=== PATIENT | male | born 1945 | race Caucasian/White ===

== ENCOUNTER 2017-06-21 09:04 | Day surgery (SDC) | payer MEDICARE, BC ==
[~2017-06-21 09:04] MED LIST: ACETAMINOPHEN 1,000 MG/100 ML BTL IV ONE; CEFAZOLIN 1 Gram 1 GM/50 ML BAG IVPB ONE
[2017-06-21] MEDS ORDERED: PROPOFOL 10 MG/ML VIAL IV ONE (14:00)
[2017-06-21] MEDS ORDERED: MIDAZOLAM HCL 2MG/2ML VIAL IV ONE (14:00)
[2017-06-21] MEDS ORDERED: FENTANYL PF 100MCG/2ML VIAL IV ONE (14:00)
[2017-06-21] MEDS ORDERED: LIDOCAINE 2% MDV (20MG/ML) 20ML VIAL IV ONE (14:00)
[2017-06-21] MEDS ORDERED: ACETAMINOPHEN 1,000 MG/100 ML BTL IV ONE (16:06)
[2017-06-21] MEDS ORDERED: CEFAZOLIN 1 Gram 1 GM/50 ML BAG IVPB ONE (16:06)
[2017-06-21] MEDS ORDERED: HYDROCODONE/APAP 5/325MG TABLET PO ONE (16:06)
[2017-06-21] MEDS ORDERED: BUPIVACAINE 0.25% W/EPI MPF 30ML VIAL IVP ONE (16:06)
--- NOTE | 2017-06-23 09:00 | Operative Note ---
DATE OF SURGERY: 06/21/2017 Surgeon: Dagoberto Rubio DO Referring physician: Hardik Issa PREOPERATIVE DIAGNOSIS: History of lymphoma. POSTOPERATIVE DIAGNOSIS: History of lymphoma. OPERATION: Left inguinal exploration with lymphadenectomy. Indication: The patient is a 71-year-old male who I saw many, many years ago and biopsy was done, with the subsequent diagnosis of lymphoma. He went through some treatment, however, recent PET scan did show some activity in the left groin. He did have some palpable adenopathy and biopsy was requested. Therefore, consent was signed, questions were answered. PROCEDURE: He was taken to the operating room and placed in the supine position. Local IV sedation was given per the Department of Anesthesia. The patient's left groin was prepped and draped in sterile fashion. The area over the mass was anesthetized with 5.0 mL of 0.25% Sensorcaine with epinephrine. A 3 cm incision was made. This was carried down through the subcutaneous tissues, appeared to be left inguinal adenopathy. This was dissected free from the surrounding tissue with cautery and then passed off the field. This was sent fresh for flow cytometry. There was really no other adenopathy that I could detect in the left groin at all. The wound was then irrigated and closed in layers with 3-0 and 4-0 Vicryl. He was taken to the recovery room in satisfactory condition. FINDINGS AT THE TIME OF SURGERY: Left inguinal adenopathy. Pathology pending. CC: Dr. Hardik NOE
== END 2017-06-21 11:05 | disposition home or self-care (01) ==
LOC: SUR 09:04
PROVIDERS: ATTEND Surgery
DX: C82.55 Diffuse follicle center lymphoma, lymph nodes of inguinal region and lower limb (principal); I10 Essential (primary) hypertension
CPT/HCPCS: 38500; 00400; 88305; 88342; 88341; J3010; J0690

== ENCOUNTER 2017-11-17 16:22 | Observation (INO) | payer MEDICARE, BC ==
[2017-11-17] MEDS ORDERED: 0.9 % SODIUM CHLORIDE 1,000 ML BAG IV ONE (16:59)
--- NOTE | 2017-11-17 16:59 | Emergency Department Record ---
History of Present Illness - General Chief Complaint: Dizziness Stated Complaint: DIZZINESS,WEAKNESS, NO APPETITE Time Seen by Provider: 11/17/17 16:53 Source: Patient, RN notes reviewed Mode of Arrival: Ambulatory - History of Present Illness Initial Comments: dizziness and weak and last chem on oct 18 2017 for non hodgkins lymphoma.(2014) . No pain and very tired on 10/18/2017 hg 8.0, Decreased appetite and one loose stool today. oncologist Dr. Mccallum [facility]. No cough, No chest pain, no abd pain, no dysuria Complaint: Dizziness Onset/Timin -: Month(s) Timing: Constant Description: Lightheadedness, Other History of Same: No History of Trauma: No Severity: Moderate Improves With: Nothing Worsens With: Nothing Associated Symptoms: Loss of appetite, Weakness - Marked Tree Coma Scale Eye Response: (4) Open spontaneously Motor Response: (6) Obeys commands Verbal Response: (5) Oriented Gloria Total: 15 - Related Data Home Medications Medication Instructions Recorded Confirmed Last Taken Metoprolol Succinate 50 mg PO DAILY 11/17/17 11/17/17 Unknown Ondansetron [Zofran Odt] 4 mg PO Q8H 11/17/17 11/17/17 Unknown Tamsulosin HCl [Flomax] 0.4 mg PO DAILY 11/17/17 11/17/17 Unknown Allergies Allergy/AdvReac Type Severity Reaction Status Date / Time No Known Drug Allergies Allergy Verified 04/08/14 10:18 Travel Screening - Travel/Exposure Within Last 30 Days Have you traveled within the last 30 days?: No Review of Systems Reviewed: No additional complaints except as noted below Constitutional: Reports: As per HPI, Chills. Denies: Fever, Malaise, Night sweats, Weakness, Weight change Eyes: Reports: As per HPI. Denies: Eye discharge, Eye pain, Photophobia, Vision change ENT: Reports: As per HPI. Denies: Congestion, Dental pain, Ear pain, Epistaxis , Hearing loss, Throat pain Respiratory: Reports: As per HPI. Denies: Cough, Dyspnea, Hemoptysis, Stridor, Wheezes Cardiovascular: Reports: As per HPI. Denies: Arrhythmia, Chest pain, Dyspnea on exertion, Edema, Murmurs, Orthopnea, Palpitations, Paroxysmal nocturnal dyspnea, Rheumatic Fever, Syncope Endocrine: Reports: As per HPI. Denies: Fatigue, Heat or cold intolerance, Polydipsia, Polyuria Gastrointestinal: Reports: As per HPI. Denies: Abdominal pain, Constipation, Diarrhea, Hematemesis, Hematochezia, Melena, Nausea, Vomiting Genitourinary: Reports: As per HPI. Denies: Dysuria, Frequency, Hematuria, Incontinence, Retention, Testicular pain, Testicular mass, Urgency Musculoskeletal: Reports: As per HPI. Denies: Arthralgia, Back pain, Gout, Joint swelling, Myalgia, Neck pain Skin: Reports: As per HPI. Denies: Bruising, Change in color, Change in hair/ nails, Lesions, Pruritus, Rash Neurological: Reports: As per HPI. Denies: Abnormal gait, Confusion, Headache, Numbness, Paresthesias, Seizure, Tingling, Tremors, Vertigo, Weakness Psychiatric: Reports: As per HPI. Denies: Anxiety, Auditory hallucinations, Depression, Homicidal thoughts, Suicidal thoughts, Visual hallucinations Hematological/Lymphatic: Reports: As per HPI. Denies: Anemia, Blood Clots, Easy bleeding, Easy bruising, Swollen glands Past Medical History - SOCIAL HISTORY Smoking Status: Current every day smoker Alcohol Use: None Drug Use: None - RESPIRATORY Hx Respiratory Disorders: No - CARDIOVASCULAR Hx Cardio Disorders: Yes Hx Hypertension: Yes (meds good control) Comment:: tires easily - NEURO Hx Neuro Disorders: Yes Comment:: occass. lightheadedness - GI Hx GI Disorders: Yes Hx Ulcer: Yes (20 yrs ago) Hx Wt Loss/Wt Gain: Yes (recent wt loss 30 lbs) Hx of Polyps: Yes (last c-scope) - Hx Genitourinary Disorders: Yes Hx Prostate Problems: Yes (flomax) - ENDOCRINE Hx Endocrine Disorders: No - MUSCULOSKELETAL Hx Musculoskeletal Disorders: Yes - PSYCH Hx Psych Problems: Yes Hx Anxiety: Yes (related to illness) Hx Depression: Yes (same) - HEMATOLOGY/ONCOLOGY Hx Hematology/Oncology Disorders: Yes Hx Cancer: Yes (non hodgekins lymphoma) Hx Chemotherapy: Yes (on hold. last one 6--17) Hx Radiation Therapy: No Family Medical History Any Significant Family History?: Yes Hx Cancer: Mother *Cancer Comment: leukemia Hx Diabetes: Brother/Sister Hx HTN: Father, Mother, Brother/Sister Hx Kidney Disease: Father *Seizure Comment: grandson has epilepsy Hx Stroke: Mother Physical Exam - General General Appearance: Alert, Oriented x3, Cooperative, Mild distress - Head Head exam: Normal inspection - Eye Eye exam: Normal appearance, PERRL Pupils: Normal accommodation - ENT ENT exam: Normal exam, Mucous membranes moist, Normal external ear exam, Normal orophraynx, TM's normal bilaterally Ear exam: Normal external inspection. negative: External canal tenderness Nasal Exam: Normal inspection. negative: Discharge, Sinus tenderness Mouth exam: Normal external inspection, Tongue normal Teeth exam: Normal inspection. negative: Dental caries Throat exam: Normal inspection. negative: Tonsillar erythema, Tonsillar exudate - Neck Neck exam: Normal inspection, Full ROM. negative: Tenderness - Respiratory Respiratory exam: Normal lung sounds bilaterally. negative: Respiratory distress - Cardiovascular Cardiovascular Exam: Regular rate, Normal rhythm, Normal heart sounds - GI/Abdominal GI/Abdominal exam: Soft, Normal bowel sounds. negative: Tenderness - Rectal Rectal exam: Deferred - exam: Deferred - Extremities Extremities exam: Normal inspection, Full ROM, Normal capillary refill. negative: Tenderness - Back Back exam: Reports: Normal inspection, Full ROM. Denies: Muscle spasm, Rash noted, Tenderness - Neurological Neurological exam: Alert, Normal gait, Oriented X3, Reflexes normal - Psychiatric Psychiatric exam: Normal affect, Normal mood - Skin Skin exam: Dry, Intact, Normal color, Warm Course Vital Signs 11/17/17 16:32 Temperature 98.4 F Pulse Rate 88 Respiratory 12 Rate Blood Pressure 125/65 Pulse Ox 99 - Reevaluation(s) Reevaluation #1: discussed case with Elisabeth and with admit to Dr. Benoit and Elisabeth. observation for one unit of blood 11/17/17 18:13 Medical Decision Making - Data Complexity MDM Data: Labs Ordered and/or Reviewed (hg 6.8), EKG Ordered and/or Reviewed ( No acute changes with a PVC) - Lab Data Result diagrams: 11/17/17 16:45 11/17/17 16:45 Disposition Clinical Impression: Weakness Anemia Qualifiers: Anemia type: unspecified type Qualified Code(s): D64.9 - Anemia, unspecified Non-Hodgkin lymphoma Qualifiers: Non-Hodgkin lymphoma type: unspecified type Lymphoma site: unspecified region Qualified Code(s): C85.90 - Non-Hodgkin lymphoma, unspecified, unspecified site Decision to Admit: Admit from ER Forms: Patient Portal Access Time of Disposition: 18:14 Quality - Quality Measures Quality Measures: N/A - Blood Pressure Screening Does Patient Have Any of the Following: No Blood Pressure Classification: Pre-Hypertensive BP Reading Systolic Measurement: 125 Diastolic Measurement: 65 Screening for High Blood Pressure: < Pre-Hypertensive BP, F/U Documented > [ [id number]] Pre-Hypertensive Follow-up Interventions: Referral to alternative/primary care provider.
[2017-11-17 17:09] LABS: HEMATOCRIT 21.3 % (42.0-52.0); MEAN CORPUSCULAR HGB CONC 31.9 g/dl (32-36); MEAN PLATELET VOLUME 11.2 fl (7.4-10.4); PLATELET COUNT 157 K/uL (130-400); RED BLOOD COUNT 1.99 M/uL (4.40-5.70); RED CELL DISTRIBUTION WIDTH 17.4 % (11.5-14.5)
[2017-11-17 17:15] LABS: MEAN CORPUSCULAR HEMOGLOBIN 34.1 pg (27-33)
[2017-11-17] MEDS ORDERED: 0.9 % SODIUM CHLORIDE 1000ML 1,000 ML IV SCH (17:15)
[2017-11-17 17:22] LABS: ANISOCYTOSIS 2+; HYPOCHROMIA 2+; PLATELET ESTIMATE NORMAL (NORMAL)
[2017-11-17 17:28] LABS: BLOOD UREA NITROGEN 15 mg/dL (8-23); CREATININE 0.6 mg/dL (0.7-1.2); EST GLOMERULAR FILTRATION RATE > 60 mL/min
[2017-11-17 17:29] LABS: TOTAL PROTEIN 6.2 g/dL (6.6-8.7)
[2017-11-17 17:31] LABS: GLUCOSE,RANDOM 108 mg/dL (74-109)
[2017-11-17 17:33] LABS: ALT/SGPT 28 U/L (<41)
[2017-11-17 17:34] LABS: ALBUMIN 3.4 g/dL (4.0-5.0); ALKALINE PHOSPHATASE 81 U/L (40-129); AST/SGOT 36 U/L (10.0-50.0)
[2017-11-17 17:44] LABS: BILIRUBIN,DIRECT < 0.2 mg/dL (0-0.3)
[2017-11-17 18:52] LABS: ABO GROUP O; ANTIBODY SCREEN NEGATIVE (NEGATIVE); RH TYPE POSITIVE
[2017-11-17 18:53] LABS: IMMED. SPIN CROSSMATCH COMPATIBLE
[2017-11-17] MEDS ORDERED: 0.9 % SODIUM CHLORIDE 1000ML 1,000 ML IV PRN (20:19)
[2017-11-17] MEDS ORDERED: ONDANSETRON 4 MG ODT TABLET PO SCH (20:19)
[2017-11-17] MEDS ORDERED: ONDANSETRON 4 MG ODT TABLET PO PRN (21:50)
[2017-11-17 22:30] LABS: URINE APPEARANCE CLEAR; URINE BILIRUBIN NEGATIVE (NEGATIVE); URINE BLOOD NEGATIVE (NEGATIVE); URINE COLOR YELLOW; URINE GLUCOSE (UA) NEGATIVE (NEGATIVE); URINE KETONE NEGATIVE (NEGATIVE); URINE LEUKOCYTE ESTERASE NEGATIVE (NEGATIVE); URINE NITRITE NEGATIVE (NEGATIVE); URINE PROTEIN NEGATIVE (NEGATIVE); URINE UROBILINOGEN 0.2 E.U./dL (0.20 - 1.00)
[2017-11-18 00:34] LABS: HEMATOCRIT 19.6 % (42.0-52.0)
[2017-11-18 00:37] LABS: HEMOGLOBIN 6.3 gm/dl (14.0-18.0)
[2017-11-18 01:20] LABS: IMMED. SPIN CROSSMATCH COMPATIBLE
[2017-11-18 04:54] LABS: HEMATOCRIT 21.6 % (42.0-52.0); MEAN CELL VOLUME 100.5 fl (81-97); MEAN CORPUSCULAR HGB CONC 32.4 g/dl (32-36); MEAN PLATELET VOLUME 11.3 fl (7.4-10.4); PLATELET COUNT 122 K/uL (130-400); RED BLOOD COUNT 2.15 M/uL (4.40-5.70); RED CELL DISTRIBUTION WIDTH 18.2 % (11.5-14.5); WHITE BLOOD COUNT W/O DIFF 6.2 K/uL (4.2-12.2)
[2017-11-18 04:55] LABS: MEAN CORPUSCULAR HEMOGLOBIN 32.5 pg (27-33)
[2017-11-18] MEDS ORDERED: METOPROLOL SUCC 50 MG TABLET PO SCH (10:00)
[2017-11-18] MEDS ORDERED: ENOXAPARIN 40 MG/0.4 ML SYR SC SCH (10:00)
[2017-11-18] MEDS ORDERED: TAMSULOSIN HCL 0.4 MG CAP.ER.24H PO SCH (10:00)
--- NOTE | 2017-11-18 10:15 | History & Physical ---
History of Present Illness - Date of Service Date of Service for History & Physical: 11/18/17 - History of Present Illness Admitting Diagnosis: anemia. non hodgkins lymphoma. post chemotherapy 2016 History of Present Illness: Deni is a 71 year-old male who was admitted on 11/17/17 for observation for anemia. His history includes Non-Hodgekins lymphoma (diagnosed in 2013), hypertension, and anxiety. His last chemotherapy administration was 10/18/17 and his Hgb was 8.0 at that time. He presented to the ED on 11/17/17 because he had been experiencing weakness, fatigue, and dizziness since his last chemo administration. He denies recent illness, fever, change in appetite or change in bowel characteristics/patterns. In the ED, his vital signs were stable and his EKG showed normal sinus rhythm with no changes. A u/a was completed and negative, CBC and CMP were completed. His Hgb was low at 6.8. A rectal exam was preformed and did not show signs of any acute bleeding. He was admitted for observation status for anemia and management with blood transfusion. 11/18/17: Deni is resting in bed. He is alert and oriented x3. He denies pain. He states that he feels much better than he did yesterday. His hgb has increased to 7.0 after 2 units PRBCs. He states that he has been using the urinal with no problems. He states that he has not had a bowel movement since yesterday morning when he one large loose stool. He denies black or bloody stools, vomiting, and heart burn. PCP: Dr. Lara Oncologist: Dr. Kumar Travel Screening - Travel/Exposure Within Last 30 Days Have you traveled within the last 30 days?: No - Travel/Exposure Within Last Year Have you traveled outside the [place] in the last year?: No - Additonal Travel Details Have you been exposed to anyone with a communicable illness?: No Review of Systems Constitutional: Reports: As per HPI, Chills, Weakness. Denies: Fever, Malaise, Night sweats, Weight change Eyes: Reports: As per HPI. Denies: Eye discharge, Eye pain, Photophobia, Vision change ENT: Reports: As per HPI. Denies: Congestion, Dental pain, Ear pain, Epistaxis , Hearing loss, Throat pain Respiratory: Reports: As per HPI. Denies: Cough, Dyspnea, Hemoptysis, Stridor, Wheezes Cardiovascular: Reports: As per HPI. Denies: Arrhythmia, Chest pain, Dyspnea on exertion, Edema, Murmurs, Orthopnea, Palpitations, Paroxysmal nocturnal dyspnea, Rheumatic Fever, Syncope Endocrine: Reports: Fatigue, Heat or cold intolerance. Denies: Polydipsia, Polyuria Gastrointestinal: Reports: As per HPI. Denies: Abdominal pain, Constipation, Diarrhea, Hematemesis, Hematochezia, Melena, Nausea, Vomiting Genitourinary: Reports: As per HPI. Denies: Dysuria, Frequency, Hematuria, Incontinence, Retention, Testicular pain, Testicular mass, Urgency Musculoskeletal: Reports: As per HPI. Denies: Arthralgia, Back pain, Gout, Joint swelling, Myalgia, Neck pain Skin: Reports: As per HPI. Denies: Bruising, Change in color, Change in hair/ nails, Lesions, Pruritus, Rash Neurological: Reports: As per HPI, Weakness, Other (Dizziness). Denies: Abnormal gait, Confusion, Headache, Numbness, Paresthesias, Seizure, Tingling, Tremors, Vertigo Psychiatric: Reports: As per HPI. Denies: Anxiety, Auditory hallucinations, Depression, Homicidal thoughts, Suicidal thoughts, Visual hallucinations Hematological/Lymphatic: Reports: As per HPI. Denies: Anemia, Blood Clots, Easy bleeding, Easy bruising, Swollen glands Past Medical History - SOCIAL HISTORY Smoking Status: Current every day smoker - RESPIRATORY Hx Respiratory Disorders: No - CARDIOVASCULAR Hx Cardio Disorders: Yes Hx Hypertension: Yes (meds good control) Comment:: tires easily - NEURO Hx Neuro Disorders: Yes Comment:: occass. lightheadedness - GI Hx GI Disorders: Yes Hx Ulcer: Yes (20 yrs ago) Hx Wt Loss/Wt Gain: Yes (wt loss 30 lbs) - Hx Genitourinary Disorders: Yes Hx Prostate Problems: Yes (flomax) - ENDOCRINE Hx Endocrine Disorders: No - MUSCULOSKELETAL Hx Musculoskeletal Disorders: Yes - PSYCH Hx Psych Problems: No Hx Anxiety: No Hx Depression: No - HEMATOLOGY/ONCOLOGY Hx Hematology/Oncology Disorders: Yes Hx Cancer: Yes (non hodgekins lymphoma) Hx Chemotherapy: Yes (on hold. last one 10-18-17) Hx Radiation Therapy: No Family Medical History Any Significant Family History?: Yes Hx Cancer: Mother *Cancer Comment: leukemia Hx Diabetes: Brother/Sister Hx HTN: Father, Mother, Brother/Sister Hx Kidney Disease: Father *Seizure Comment: grandson has epilepsy Hx Stroke: Mother H&P Meds/Allergies - Allergies Allergies: Allergies Allergy/AdvReac Type Severity Reaction Status Date / Time No Known Drug Allergies Allergy Verified 04/08/14 10:18 - Home Medications Home Medications Medication Instructions Recorded Confirmed Last Taken Metoprolol Succinate 50 mg PO DAILY 11/17/17 11/17/17 Unknown Ondansetron [Zofran Odt] 4 mg PO Q8H 11/17/17 11/17/17 Unknown Tamsulosin HCl [Flomax] 0.4 mg PO DAILY 11/17/17 11/17/17 Unknown - Active Medications Active Medications: Current Medications Enoxaparin Sodium (Lovenox) 40 mg SC DAILY [facility] Last Admin: 11/18/17 09:10 Dose: Not Given Sodium Chloride () 1,000 mls @ 15 mls/hr IV .Q24H PRN PRN Reason: LARGE VOLUME IV Metoprolol Succinate (Toprol Xl) 50 mg PO DAILY [facility] Last Admin: 11/18/17 09:10 Dose: Not Given Ondansetron HCl (Zofran Odt) 4 mg PO Q8H PRN PRN Reason: NAUSEA/VOMITING Tamsulosin HCl (Flomax) 0.4 mg PO DAILY [facility] Last Admin: 11/18/17 09:09 Dose: Not Given Physical Exam - Vital Signs Vital Signs: Vital Signs - Last 24 Hrs Temp Pulse Resp BP BP BP Pulse Ox 11/18/17 09:27 99.6 F 124/76 11/18/17 07:53 84 20 11/18/17 06:00 99.6 F 76 18 124/76 94 L 11/18/17 02:00 100.3 F H 79 18 127/60 97 11/17/17 22:00 100.9 F H 86 18 143/74 97 11/17/17 21:00 18 11/17/17 20:20 99.2 F 97 H 18 129/82 100 - General General Appearance: Alert, Oriented x3, Cooperative, No acute distress - Head Head exam: Normal inspection - Eye Eye exam: Normal appearance, PERRL Pupils: Normal accommodation - ENT ENT exam: Normal exam, Mucous membranes moist, Normal external ear exam, Normal orophraynx Ear exam: Normal external inspection. negative: External canal tenderness Nasal Exam: Normal inspection. negative: Discharge, Sinus tenderness Mouth exam: Normal external inspection, Tongue normal Teeth exam: Normal inspection. negative: Dental caries Throat exam: Normal inspection. negative: Tonsillar erythema, Tonsillar exudate - Neck Neck exam: Normal inspection, Full ROM. negative: Tenderness - Respiratory Respiratory exam: Normal lung sounds bilaterally. negative: Respiratory distress - Cardiovascular Cardiovascular Exam: Regular rate, Normal rhythm, Normal heart sounds Peripheral Pulses: 2+: Radial (R), Radial (L), Dorsalis Pedis (R), Dorsalis Pedis (L) - GI/Abdominal GI/Abdominal exam: Soft, Normal bowel sounds. negative: Tenderness - Rectal Rectal exam: Deferred - exam: Deferred - Extremities Extremities exam: Normal inspection, Full ROM, Normal capillary refill. negative: Tenderness - Back Back exam: Reports: Normal inspection, Full ROM. Denies: Muscle spasm, Rash noted, Tenderness - Neurological Neurological exam: Alert, Normal gait, Oriented X3 - Psychiatric Psychiatric exam: Normal affect, Normal mood - Skin Skin exam: Dry, Intact, Normal color, Warm Results - Labs Result Diagrams: 11/18/17 04:50 11/17/17 16:45 Labs Last 24 Hours: Laboratory Results - last 24 hr 11/17/17 11/18/17 11/18/17 22:30 00:30 04:50 WBC 6.2 RBC 2.15 L Hgb 6.3 L* 7.0 L Hct 19.6 L 21.6 L MCV 100.5 H MCH 32.5 MCHC 32.4 RDW 18.2 H Plt Count 122 L MPV 11.3 H Neutrophils % 70.0 Band Neutrophils % 0.0 Eosinophils % Not Reportable Basophils % Not Reportable Lymphocytes 10.0 L Monocytes 16.0 H Basophils 0.0 Eosinophil Count 4.0 Urine Color Yellow Urine Appearance Clear Urine pH 6.0 Ur Specific [place] 1.010 Urine Protein Negative Urine Glucose (UA) Negative Urine Ketones Negative Urine Blood Negative Urine Nitrite Negative Urine Bilirubin Negative Urine Urobilinogen 0.2 Ur Leukocyte Esterase Negative VTE H&P Assessment - Risk for VTE Risk for VTE: Yes Risk Level: Low Risk Assessment Date: 11/18/17 Risk Assessment Time: 10:18 VTE Orders Placed or Will Be Placed: No VTE Reason for No Prophylaxis: Contraindicated (have not ruled out acute bleed) Plan - Inpatient Certification Inpatient Certification: Admit to inpatient care: Based on my medical assessment, after consideration of patient's risk factors (age, co-morbidities and patient presenting symptoms and acuity), I expect that this patient will remain in the hospital greater than or equal to two midnights and that the services needed warrant inpatient care because: Patient Risk Factors: [] Estimated length of stay: [] The patient may reasonably be expected to be discharged or transferred to a hospital within 96 hours after admission to [facility]. Services needed: [] Post hospital care (if known): [] I certify that my determination is in accordance with my understanding of Medicare requirements for reasonable and necessary inpatient services. - Detailed Diagnosis and Plan (1) Anemia Current Visit: Yes Status: Acute Qualifiers: Anemia type: unspecified type Qualified Code(s): D64.9 - Anemia, unspecified Base Code: D64.9 - ANEMIA, UNSPECIFIED Comment: 11/18/17- Pt. presented to ED on 11/17/17 because he had been feeling tired, weak, and dizzy since his last chemotherapy administration on 10/18/17. Anemia appears macrocytic in nature. Hgb increased to 7.0 this morning after 2 units PRBCs transfused. No evidence of GI blood loss. Ordered labs to further evaluate cause of macrocytic anemia, including B12, LDH, haptoglobin, ferritin, retic count. Suscpect anemia may be secondary to chemotherapy agent. PT eval completed and no concerns regarding weakness, safe to ambulate. Spoke with Dr. Kumar, he does not recommend any further intervention from an oncological standpoint. Labs completed and faxed to pt's oncologist (Dr. Kumar). Pt. will f/u with Dr. Kumar early next week, his office will call to schedule tomorrow. (2) Non-Hodgkin lymphoma Current Visit: Yes Status: Acute Qualifiers: Non-Hodgkin lymphoma type: unspecified type Lymphoma site: unspecified region Qualified Code(s): C85.90 - Non-Hodgkin lymphoma, unspecified, unspecified site Base Code: C85.90 - NON-HODGKIN LYMPHOMA, UNSPECIFIED, UNSPECIFIED SITE Comment: 11/18/17- Pt. diagnosed with non-hodgkins lymphoma in 2013, last chemo round was 10/18/17. Pt. has been experiencing weakness, fatigue, and dizziness since. EKG in ED showed NSR. CBC demonstrated anemia- treated with 2 units PRBCs, hgb increased to 7.0. VS remain stable. Labs requested by pt's oncologist (Dr. Kumar) have been completed and faxed to his office. Pt. will f/u with Dr. Kumar early next week. Plan to d/c home this afternoon. (3) Full code status Current Visit: Yes Status: Acute Base Code: Z78.9 - OTHER SPECIFIED HEALTH STATUS Comment: 11/18/17- Pt. is full code status (4) DVT prophylaxis Current Visit: Yes Status: Acute Base Code: [id number] - Comment: 11/18/17- contraindicated with possible acute bleed
--- NOTE | 2017-11-18 13:59 | Discharge Summary ---
Providers Discharge Summary Date: 11/18/17 Date of admission: 11/17/17 20:14 Expected Date of Discharge: 11/18/17 Attending physician: Wong Saldana Primary care physician: GEORGINA LARA M.D. Physical Exam - Vital Signs Vital Signs: Vital Signs - Last 24 Hrs Temp Pulse Pulse Resp BP BP BP 11/18/17 10:00 99.1 F 80 18 113/68 11/18/17 09:27 99.6 F 124/76 11/18/17 07:53 84 20 11/18/17 06:00 99.6 F 76 18 124/76 11/18/17 02:00 100.3 F H 79 18 127/60 11/17/17 22:00 100.9 F H 86 18 143/74 11/17/17 21:00 18 11/17/17 20:20 99.2 F 97 H 18 129/82 Pulse Ox 11/18/17 10:00 96 11/18/17 09:27 11/18/17 07:53 11/18/17 06:00 94 L 11/18/17 02:00 97 11/17/17 22:00 97 11/17/17 21:00 11/17/17 20:20 100 - General General Appearance: Alert, Oriented x3, Cooperative, No acute distress - Head Head exam: Normal inspection - Eye Eye exam: Normal appearance, PERRL Pupils: Normal accommodation - ENT ENT exam: Normal exam, Mucous membranes moist, Normal external ear exam, Normal orophraynx Ear exam: Normal external inspection. negative: External canal tenderness Nasal Exam: Normal inspection. negative: Discharge, Sinus tenderness Mouth exam: Normal external inspection, Tongue normal Teeth exam: Normal inspection. negative: Dental caries Throat exam: Normal inspection. negative: Tonsillar erythema, Tonsillar exudate - Neck Neck exam: Normal inspection, Full ROM. negative: Tenderness - Respiratory Respiratory exam: Normal lung sounds bilaterally. negative: Respiratory distress - Cardiovascular Cardiovascular Exam: Regular rate, Normal rhythm, Normal heart sounds Peripheral Pulses: 2+: Radial (R), Radial (L), Dorsalis Pedis (R), Dorsalis Pedis (L) - GI/Abdominal GI/Abdominal exam: Soft, Normal bowel sounds. negative: Tenderness - Rectal Rectal exam: Deferred - exam: Deferred - Extremities Extremities exam: Normal inspection, Full ROM, Normal capillary refill. negative: Tenderness - Back Back exam: Reports: Normal inspection, Full ROM. Denies: Muscle spasm, Rash noted, Tenderness - Neurological Neurological exam: Alert, Normal gait, Oriented X3 - Psychiatric Psychiatric exam: Normal affect, Normal mood - Skin Skin exam: Dry, Intact, Normal color, Warm Hospitalization - Hospitalization Admission Diagnosis: anemia. non hodgkins lymphoma. post chemotherapy 2016 - Problem List/Discharge Diagnosis (1) Anemia Current Visit: Yes Status: Acute Discharge Diagnosis: Anemia type: unspecified type Qualified Code(s): D64.9 - Anemia, unspecified Base Code: D64.9 - ANEMIA, UNSPECIFIED Comment: 11/18/17- Pt. presented to ED on 11/17/17 because he had been feeling tired, weak, and dizzy since his last chemotherapy administration on 10/18/17. Anemia appears macrocytic in nature. Hgb increased to 7.0 this morning after 2 units PRBCs transfused. No evidence of GI blood loss and patient states symptoms have resolved. Ordered labs to further evaluate cause of macrocytic anemia, including B12, LDH, haptoglobin, ferritin, retic count. Suscpect anemia may be secondary to chemotherapy agent. PT eval completed and no concerns regarding weakness, safe to ambulate. Spoke with Dr. Kumar, he does not recommend any further intervention from an oncological standpoint. Labs completed and faxed to pt's oncologist (Dr. Deep Noel). Pt. will f/u with Dr. Kumar early next week, his office will call to schedule tomorrow. (2) Non-Hodgkin lymphoma Current Visit: Yes Status: Acute Discharge Diagnosis: Non-Hodgkin lymphoma type: unspecified type Lymphoma site: unspecified region Qualified Code(s): C85.90 - Non-Hodgkin lymphoma, unspecified, unspecified site Base Code: C85.90 - NON-HODGKIN LYMPHOMA, UNSPECIFIED, UNSPECIFIED SITE Comment: 11/18/17- Pt. diagnosed with non-hodgkins lymphoma in 2013, last chemo round was 10/18/17. Pt. has been experiencing weakness, fatigue, and dizziness since. EKG in ED showed NSR. CBC demonstrated anemia- treated with 2 units PRBCs, hgb increased to 7.0. VS remain stable. Labs requested by pt's oncologist (Dr. Kumar) have been completed and faxed to his office. Pt. will f/u with Dr. Kumar early next week. Plan to d/c home this afternoon. (3) Full code status Current Visit: Yes Status: Acute Base Code: Z78.9 - OTHER SPECIFIED HEALTH STATUS Comment: 11/18/17- Pt. is full code status - Hospitalization Course Disposition: Home, Self-Care Hospital Course: Deni is a 71 year-old male who was admitted on 11/17/17 for observation for anemia. His history includes Non-Hodgekins lymphoma (diagnosed in 2013), hypertension, and anxiety. His last chemotherapy administration was 10/18/17 and his Hgb was 8.0 at that time. He presented to the ED on 11/17/17 because he had been experiencing weakness, fatigue, and dizziness since his last chemo administration. He denies recent illness, fever, change in appetite or change in bowel characteristics/patterns. In the ED, his vital signs were stable and his EKG showed normal sinus rhythm with no changes. A u/a was completed and negative, CBC and CMP were completed. His Hgb was low at 6.8. A rectal exam was preformed and did not show signs of any acute bleeding. He was admitted for observation status for anemia and management with blood transfusion. 11/18/17: Deni is resting in bed. He is alert and oriented x3. He denies pain. He states that he feels much better than he did yesterday. His hgb has increased to 7.0 after 2 units PRBCs. He states that he has been using the urinal with no problems. He states that he has not had a bowel movement since yesterday morning when he one large loose stool. Spoke to Dr. Kumar regarding pt.'s status- he requests a reticulocyte count, ferritin, and B12 level to be drawn and faxed to his office. Dr. Kumar also stated that if pt. is feeling better, he can go home and his office will call for pt. to f/u early next week. Labs ordered to be drawn off of morning samples, will fax results to Dr. Kumar. PT consult ordered to assess safe ambulation. Will plan to d/c home this afternoon. 11/18/17, 1400: Deni is doing well, he states he feels much better. Labs requested by Dr. Kumar have been completed and faxed to his office. PT eval completed and no concerns regarding ambulation. Plan to discharge home this afternoon. Dr. Kumar's office will call pt. tomorrow to schedule f/u early next week. PCP: Dr. Lara Oncologist: Dr. Kumar Abnormal Labs: Abnormal Lab Results 11/18/17 11/18/17 11/18/17 Range/Units 00:30 04:50 10:28 RBC 2.15 L (4.40-5.70) M/uL Hgb 6.3 L* 7.0 L (14.0-18.0) gm/dl Hct 19.6 L 21.6 L (42.0-52.0) % MCV 100.5 H (81-97) fl RDW 18.2 H (11.5-14.5) % Plt Count 122 L (130-400) K/uL MPV 11.3 H (7.4-10.4) fl Lymphocytes 10.0 L (16-45) % Monocytes 16.0 H (0-9) % Ferritin 1636 H (30-400) ng/mL Direct Bilirubin (0-0.3) mg/dL 11/18/17 Range/Units 10:31 RBC (4.40-5.70) M/uL Hgb (14.0-18.0) gm/dl Hct (42.0-52.0) % MCV (81-97) fl RDW (11.5-14.5) % Plt Count (130-400) K/uL MPV (7.4-10.4) fl Lymphocytes (16-45) % Monocytes (0-9) % Ferritin (30-400) ng/mL Direct Bilirubin 0.4 H (0-0.3) mg/dL Condition at Discharge: (2) Stable Discharge Medications - Discharge Medications Home Medications: Ambulatory Orders Metoprolol Succinate 50 mg PO DAILY 11/17/17 [Last Taken Unknown] Ondansetron [Zofran Odt] 4 mg PO Q8H 11/17/17 [Last Taken Unknown] Tamsulosin HCl [Flomax] 0.4 mg PO DAILY 11/17/17 [Last Taken Unknown] Discharge Plan - Discharge Instructions Activity at Discharge: Increase Activity as Tolerated Diet at Discharge: Regular Diet Instructions: Anemia (DC) Additional Instructions: Resume home meds upon discharge Dr. Kumar's office will call you to schedule a follow-up appointment. If you do not hear from them, their phone number is Labs will be faxed to Dr. Kumar's office today Please call if any questions/concerns. If symptoms persist or worsen, go to ED for evaluation. Quality Measures - Quality Measures Quality Measures: Advance Directives, Documentation of Current Medications in Medical Record, Elder Maltreatment Screen and Follow-Up Plan, Screening for High Blood Pressure and F/U Documented - Current Medications Quality Measure: Measure #130: Documentation of Current Medications Documentation of Current Medications: <Current Medications Documented/Reviewed> [G8427] - Blood Pressure Screening Quality Measure: Screening for High Blood Pressure and Follow-Up Documented Does Patient Have Any of the Following: Active Dx of HTN Blood Pressure Classification: Pre-Hypertensive BP Reading Systolic Measurement: 124 Diastolic Measurement: 76 Screening for High Blood Pressure: Patient Exclusion, Hx of HTN [G9744] - Advance Directives Quality Measure: Measure #47: Care Plan Advance Directives Established: No Advance Directives Information Provided To Patient: Declined Advance Directives on File: No Living Will: No Power of Licsw: No Advance Care Planning: <Care Plan/Decision Maker Not Decided; Discussed & Documented> [1124F] - Elder Abuse Suspicion Index Screening: Elder Abuse Suspicion Index Screening Rely on people for bathing, dressing, shopping, banking, etc: Yes Prevented from getting food, clothes, medication, etc: No Made to feel shamed or threatened by someone: No Forced to sign papers or use money against will: No Feel afraid, touched in ways not wanted or hurt physically: No Poor eye contact, withdrawn, malnourished, cuts or bruises: No Screening Result: Negative result EASI Reference Information: Yasmany SHIPLEY, Pretty C, Richelle D, Diego Villasenor.Development and validation of a tool to assist physicians identification of elder abuse: The Elder Abuse Suspicion Index (EASI ). Journal of Elder Abuse and Neglect, 2008; 20 (3): 276-300. - Elder Maltreatment Screen Quality Measures: Elder Maltreatment Screen and Follow-Up Plan Elder Maltreatment Screen: <Negative, No Follow-Up Plan Required> [P7622]
--- NOTE | 2017-11-18 14:40 | Rehab Evaluation ---
Patient Information - Patient Information Diagnosis: anemia, non-hodgkins lymphoma, post chemotherapy Ordered Treatment: PT Evaluate and Treat Status: Initial Evaluation Surgery: No History: Detail (Pt. reports history of chemotherapy for non-hodgkins lymphoma. Pt. was admitted to ER yesterday with c/o dizziness, however, at time of physical therapy initial evaluation he did not have SOB, dizziness, or reports of fatigue.) Past Med/[place] Hx Detail: Detail (See additional medical intake forms.) Past Medical/Surgical Hx: PAST MEDICAL/SURGICAL HISTORY Past Surgical History right and left inguinal lymph node bx; rt cataract removal w lens implant 10-03-2015; left cataract removal ; colonoscopy; PMH - Respiratory Hx Respiratory Disorders No PMH - Cardiovascular Hx Cardiovascular Disorders Yes Hx Hypertension Yes: meds good control Comment: tires easily PMH - Neuro Hx Neurological Disorders Yes Comment: occass. lightheadedness PMH - GI Hx Gastrointestinal Disorders Yes Hx Ulcer Yes: 20 yrs ago Hx Weight Loss/Weight Gain Yes: wt loss 30 lbs PMH - Hx Genitourinary Disorders Yes Hx Prostate Problems Yes: flomax PMH - Endocrine Hx Endocrine Disorders No PMH - Musculoskeletal Hx Musculoskeletal Disorders Yes PMH - Psych Hx Psychiatric Problems No Hx Anxiety No Hx Depression No PMH - Hematology/Oncology Hx Hematology/Oncology Yes Disorders Hx Cancer Yes: non hodgekins lymphoma Hx Chemotherapy Yes: on hold. last one 10-18-17 Hx Radiation Therapy No Premorbid Status: Detail (Pt. has had five chemo treatments, but felt increased sx regarding dizziness after last tx.) Social History: Detail (Pt. lives in a ranch style home with a who can provide support. Pt. has a front wheeled walker at home, but had not been ambulating with his AD. Pt. did not report difficulty I ascending his two steps leading into the home prior to being admitted. Pt. does not have modifications to the bathroom. Pt. had 12 steps leading to the basement, but he infrequently uses the steps leading to the basement. Pt. is retired.) Precautions: Fall - Time With Patient Total Time Spent With Patient (Min): 30 Treatment Procedures: Detail (Physical Therapy Evaluation Completed. Pt. remained stable throughout tx with sx, he did not request break with gait training and verbalized understanding of AD use at home when feeling dizzy or fatigued. Pt. was left supine with call light available, and nursing was notified of his status.) Subjective Information - Subjective Information Per Patient (Pt. denied SOB, fatigue, nausea, or pain at start of tx session.) Objective Data - Pain Pain Present: No - Mental Status Patient Orientation: Oriented x3 - Visual Perception Appears within normal limits for therapeutic activities - ROM Within normal limits (WFL BLE and BUE) - Strength/Tone Within normal limits (BLE and BUE 5/5 grossly) - Coordination Appears within normal limits for therapeutic activities - Bed Mobility Independent (Pt. was independent with bed mobility and transfers.) - Transfers Independent (Independent.) - Balance Balance Sitting: Good (Pt. performed seated balance with eyes closed for more than 30 seconds and maintained good midline positioning with perturbations in all directions.) Balance Standing: Good (Pt. maintained good midline positioning with standing balance for more than 30 seconds with feet together and eyes open and with perturbation testing in all directions.) - Sensation Intact - Gait Detail (Pt. independently ambulated 80 feet with standard walker and did not report SOB, dizziness, or fatigue. Pt. independently ambulated 10 feet without AD and ascended and descended 3 steps independently without AD.) - ADL's/IADL's Detail (Pt. donned his pants while standing and did not exhibit poor balance.) - Special Tests No Therapy Assessment - Therapy Assessment Detail (Pt. was independent with bed mobility, transfers, gait training, and independently ascended and descended 3 steps without walker. Pt. does not exhibit functional limitation at this time and is considered safe to return to home environment due to being I with all tasks.) Patient Education - Patient Education Teaching Topic: Exercise/Activity (Pt. was instructed to perform supine SLR and bridging to maintain LE strength for safe transfers.) Response: Verbalize Understanding Teaching Method: Discussion Teaching Recipient: Patient Barriers To Learning: None Problem List - Problem List Physical Therapy Problem List: Detail (Pt. does not exhibit functional limitation, balance impairment, or unsafe gait characteristics. He is appropriate for D/C from inpatient PT.) Goals - Goals Physical Therapy Goals: Pt. is appropriate for D/C from inpatient PT. Prognosis - Prognosis Good (Pt. is safe with bed mobility, transfer, and gait. He does not require PT services at this time for bed mobility, transfers, or gait.) Plan - Plan Physical Therapy Plan: D/C pt. from inpatient PT.
== END 2017-11-18 15:59 | disposition home or self-care (01) ==
LOC: ER 16:22 → INTOOBSV 20:14 → MEDSURG 20:14
PROVIDERS: ADMIT Internal Medicine; ATTEND Internal Medicine
DX: D64.9 Anemia, unspecified (principal); C85.90 Non-Hodgkin lymphoma, unspecified, unspecified site; R53.1 Weakness; R53.83 Other fatigue; I10 Essential (primary) hypertension
CPT/HCPCS: 36430 ×3; 93041; 99285 ×2; 83615; 82248; 85018; 85014; 85044; 80076; 80048; 82728; 81003; 82607; 83010; 85027 ×2; 86900; 86901; 86850; 94760; 93005; 93010; G0378 ×2; P9016 ×2; G8978; G8979; G8980; 99220; J7030

== ENCOUNTER 2017-12-14 20:07 | Emergency (ER) | payer MEDICARE, BC ==
--- NOTE | 2017-12-14 20:35 | Emergency Department Record ---
History of Present Illness - General Chief complaint: Weakness Stated complaint: WEAKNESS Time Seen by Provider: 12/14/17 20:34 Source: Patient, EMS Mode of Arrival: EMS Limitations: No limitations - History of Present Illness Initial comments: 71 yo male presents to ED for evaluation of generalized weakness for the past 2 weeks. Patient reports a history of lymphoma x 2 years, has been receiving chemo but has not had a treatment since 10/18/17. Patient reports that he was treated for moderate-severe anemia 2.5 weeks ago improved with 2 Units PRBCs. Patient reports that his symptoms today are similar to his last episode. Patient denies fevers, chills, or recent illness symptoms. Patient sees Dr[facility] Mccallum [facility]. Complaint: Generalized weakness Onset/Timin -: Week(s) Location: Generalized Severity: Moderate Consistency: Constant Improves with: None Worsens with: Exertion - Gloria Coma Scale Eye Response: (4) Open spontaneously Motor Response: (6) Obeys commands Verbal Response: (5) Oriented Gloria Total: 15 - Related Data Home Medications Medication Instructions Recorded Confirmed Last Taken Aspirin 81 mg PO DAILY 12/14/17 12/14/17 12/14/17 Lorazepam [Ativan] 0.5 mg PO BID PRN 12/14/17 12/14/17 Unknown Metoclopramide HCl 10 mg PO DAILY PRN 12/14/17 12/14/17 Unknown Allergies Allergy/AdvReac Type Severity Reaction Status Date / Time No Known Drug Allergies Allergy Verified 04/08/14 10:18 Travel Screening - Travel/Exposure Within Last 30 Days Have you traveled within the last 30 days?: No - Travel Symptoms Symptom Screening: None Review of Systems Constitutional: Reports: Weakness (generalized). Denies: Chills, Fever, Malaise , Night sweats Eyes: Denies: Eye discharge, Eye pain, Photophobia ENT: Denies: Congestion, Ear pain, Epistaxis Respiratory: Denies: Cough, Dyspnea Cardiovascular: Denies: Chest pain, Dyspnea on exertion Endocrine: Reports: Fatigue. Denies: Heat or cold intolerance Gastrointestinal: Denies: Abdominal pain, Nausea, Vomiting Genitourinary: Denies: Incontinence, Retention Musculoskeletal: Denies: Arthralgia, Back pain, Gout, Joint swelling Skin: Denies: Bruising, Change in color Neurological: Denies: Abnormal gait, Confusion, Headache, Seizure Psychiatric: Denies: Anxiety Hematological/Lymphatic: Denies: Anemia, Blood Clots Past Medical History - SOCIAL HISTORY Smoking Status: Current every day smoker - RESPIRATORY Hx Respiratory Disorders: No - CARDIOVASCULAR Hx Cardio Disorders: Yes Hx Hypertension: Yes (meds good control) Comment:: tires easily - NEURO Hx Neuro Disorders: Yes Comment:: occass. lightheadedness - GI Hx GI Disorders: Yes Hx Ulcer: Yes (20 yrs ago) Hx Wt Loss/Wt Gain: Yes (wt loss 30 lbs) - Hx Genitourinary Disorders: Yes Hx Prostate Problems: Yes (flomax) - ENDOCRINE Hx Endocrine Disorders: No - MUSCULOSKELETAL Hx Musculoskeletal Disorders: Yes - PSYCH Hx Psych Problems: No Hx Anxiety: No Hx Depression: No - HEMATOLOGY/ONCOLOGY Hx Hematology/Oncology Disorders: Yes Hx Cancer: Yes (non hodgekins lymphoma) Hx Chemotherapy: Yes (on hold. last one 10-18-17) Hx Radiation Therapy: No Family Medical History Any Significant Family History?: Yes Hx Cancer: Mother *Cancer Comment: leukemia Hx Diabetes: Brother/Sister Hx HTN: Father, Mother, Brother/Sister Hx Kidney Disease: Father *Seizure Comment: grandson has epilepsy Hx Stroke: Mother Physical Exam - General General Appearance: Alert, Oriented x3, Cooperative, Moderate distress Limitations: No limitations - Head Head exam: Atraumatic, Normocephalic, Normal inspection Head exam detail: negative: Abrasion, Contusion, Harvey's sign, General tenderness, Hematoma, Laceration - Eye Eye exam: Normal appearance. negative: Conjunctival injection, Periorbital swelling, Periorbital tenderness, Scleral icterus - ENT Ear exam: negative: Auricular hematoma, Auricular trauma Nasal Exam: negative: Active bleeding, Discharge, Dried blood, Foreign body Mouth exam: negative: Drooling, Laceration, Muffled voice, Tongue elevation - Neck Neck exam: Normal inspection. negative: Meningismus, Tenderness - Respiratory Respiratory exam: Normal lung sounds bilaterally. negative: Rales, Respiratory distress, Rhonchi, Stridor - Cardiovascular Cardiovascular Exam: Regular rate, Normal rhythm, Normal heart sounds - GI/Abdominal GI/Abdominal exam: Soft. negative: Rebound, Rigid, Tenderness - Rectal Rectal exam: Deferred - exam: Deferred - Extremities Extremities exam: negative: Calf tenderness, Pedal edema - Back Back exam: Denies: CVA tenderness (R), CVA tenderness (L) - Neurological Neurological exam: Alert, Normal gait, Oriented X3 - Psychiatric Psychiatric exam: Normal affect, Normal mood - Skin Skin exam: Normal color, Petechiae (Congential to the chest wall/abdomen). negative: Abrasion Type of lesion: negative: abrasion Course Vital Signs 12/14/17 20:20 Temperature 98.7 F Pulse Rate 93 H Respiratory 16 Rate Blood Pressure 131/93 Pulse Ox 100 - Reevaluation(s) Reevaluation #1: 12/14/17 20:34 EKG:L Sinus tachycardia 104 with PACs LAD, low voltage anteriorly No acute ST-T wave changes Reevaluation #2: 12/14/17 21:17 CBC reviewed, Hgb 7.0 (7.0 11/18/17), Platelets 63 (previous 122). WBC 12. Type and screen ordered. Reevaluation #3: 12/14/17 21:42 Labs reviewed: Potassium 4.9 BUN/Creatinine 28/0.5 Troponin 0.130. Reevaluation #4: 12/14/17 22:12 [facility] does not have any beds available. Case was discussed with Dr. Yee at [facility], will admit for further evaluation. ASA given for elevated troponin likely the result of demand ischemia. Patient was updated on pending transfer to [facility]. Medical Decision Making - Lab Data Result diagrams: 12/14/17 21:00 12/14/17 21:01 Disposition Disposition: Transfer Clinical Impression: Thrombocytopenia, Elevated troponin Anemia Qualifiers: Anemia type: unspecified type Qualified Code(s): D64.9 - Anemia, unspecified Lymphoma Qualifiers: Lymphoma type: non-Hodgkin Non-Hodgkin lymphoma type: unspecified type Lymphoma site: unspecified region Qualified Code(s): C85.90 - Non-Hodgkin lymphoma, unspecified, unspecified site Disposition: Acute Care Hospital Transfer Transfer To: [facility] Reason For Transfer: Oncology/Cardiac evaluation Accepting Physician: Nakia Time Discussed w/Accepting Physician: 22:12 Condition: (2) Stable Forms: Patient Portal Access Time of Disposition: 22:13 Quality - Quality Measures Quality Measures: N/A - Blood Pressure Screening Does Patient Have Any of the Following: No Blood Pressure Classification: Hypertensive Reading Systolic Measurement: 131 Diastolic Measurement: 93 Screening for High Blood Pressure: < First Hypertensive BP, F/U Documented > [ G8950] First Hypertensive Follow-up Interventions: Referral to alternative/primary care provider.
[2017-12-14 21:03] LABS: EOS % 0.1 % (0-6); HEMATOCRIT 22.3 % (42.0-52.0); MEAN CORPUSCULAR HGB CONC 31.4 g/dl (32-36); MEAN PLATELET VOLUME 10.7 fl (7.4-10.4); MONO % 7.1 % (0-9); PLATELET COUNT 63 K/uL (130-400); RED BLOOD COUNT 2.23 M/uL (4.40-5.70); RED CELL DISTRIBUTION WIDTH 19.4 % (11.5-14.5)
[2017-12-14 21:06] LABS: MEAN CORPUSCULAR HEMOGLOBIN 31.3 pg (27-33)
[2017-12-14 21:14] LABS: BLOOD UREA NITROGEN 28 mg/dL (8-23); CREATININE 0.5 mg/dL (0.7-1.2); EST GLOMERULAR FILTRATION RATE > 60 mL/min; TOTAL PROTEIN 5.4 g/dL (6.6-8.7)
[2017-12-14 21:16] LABS: GLUCOSE,RANDOM 123 mg/dL (74-109)
[2017-12-14 21:19] LABS: ALB/GLOB RATIO 0.9 (1.1-1.8); ALBUMIN 2.6 g/dL (4.0-5.0); ALKALINE PHOSPHATASE 114 U/L (40-129); ALT/SGPT 46 U/L (<41); AST/SGOT 33 U/L (10.0-50.0)
[2017-12-14 21:37] LABS: ABO GROUP O; RH TYPE POSITIVE
[2017-12-14 21:45] LABS: ANTIBODY SCREEN NEGATIVE (NEGATIVE)
[2017-12-14] MEDS: ASPIRIN 81 MG CHEWABLE TABLET PO ONE (22:23)
[2017-12-14 22:39] LABS: URINE APPEARANCE CLEAR; URINE BILIRUBIN NEGATIVE (NEGATIVE); URINE BLOOD NEGATIVE (NEGATIVE); URINE COLOR YELLOW; URINE GLUCOSE (UA) NEGATIVE (NEGATIVE); URINE KETONE NEGATIVE (NEGATIVE); URINE LEUKOCYTE ESTERASE NEGATIVE (NEGATIVE); URINE NITRITE NEGATIVE (NEGATIVE); URINE PROTEIN NEGATIVE (NEGATIVE)
--- NOTE | 2017-12-15 20:36 | RADIOLOGY REPORT ---
EXAM: CHEST 2 VIEWS HISTORY: GENERALIZED WEAKNESS FOR SEVERAL MONTHS, GETTING WORSE THE LAST FOUR WEEKS. TECHNIQUE: PA and lateral views. COMPARISON: No prior chest x-ray. FINDINGS: Heart size is normal. Calcification and mild torsion of the aorta. Venous access port in place with the catheter tip in the region of the cavoatrial junction. No pneumothorax seen and no pleural effusion evident. The lungs do appear somewhat hyperinflated suggesting underlying COPD. There is also an approximately 2.7 cm nodule/mass overlying the left lower lung on the frontal view, probably located just posterior to the heart on the lateral within the lower lobe. This is indeterminate and malignancy cannot be excluded. Faint nodular density more inferiorly at the left base on the frontal view and not seen on the lateral may just be a prominent nipple shadow. IMPRESSION: 1. LUNGS APPEAR SOMEWHAT HYPERINFLATED SUGGESTING UNDERLYING COPD. 2. APPROXIMATELY 2.7 CM NODULE/MASS LEFT LOWER LOBE. MALIGNANCY CANNOT BE EXCLUDED. SECOND FAINT NODULAR DENSITY MORE INFERIORLY LEFT BASE MAY JUST BE A NIPPLE SHADOW. FURTHER EVALUATION OF THE 2.7 CM NODULE ON THE LEFT BY COMPARING WITH OLD FILMS AND DEPENDING ON THE CLINICAL SETTING, CHEST CT OR PET CT MAY BE USEFUL. JOB NUMBER: [id number] MTDD
== END 2017-12-15 01:50 | disposition short-term general hospital (02) ==
LOC: ER 20:07
DX: D69.6 Thrombocytopenia, unspecified (principal); R79.89 Other specified abnormal findings of blood chemistry; C85.90 Non-Hodgkin lymphoma, unspecified, unspecified site; D63.0 Anemia in neoplastic disease; I10 Essential (primary) hypertension; F17.210 Nicotine dependence, cigarettes, uncomplicated
CPT/HCPCS: 71046; 80053; 81003; 84484; 85027; 86850; 86900; 86901; 93005; 93010; 99285

== ENCOUNTER 2017-12-23 16:27 | Inpatient (IN) | payer MEDICARE, BC ==
[2017-12-23] MEDS ORDERED: 0.9 % SODIUM CHLORIDE 1,000 ML BAG IV ONE (16:44)
--- NOTE | 2017-12-23 16:52 | Emergency Department Record ---
History of Present Illness - General Chief complaint: Weakness Stated complaint: WEAKNESS Time Seen by Provider: 12/23/17 16:37 Source: Patient Mode of Arrival: Stretcher Limitations: No limitations - History of Present Illness Initial comments: The patient is here due to generalized weakness for about 2 weeks. He has a hx of Lymphoma and his last chemo was 3 days ago. His doctor is at the [facility]. The patient states he has no energy and has fallen twice due to the problem. He denies any fever, ST, cough, CP, SOB, or dysuria. The patient was here in the ER 8 days ago for the same thing and was transferred to [facility] due to an indeterminant Troponin result. He did see his Crm Marketing Analyst and had a cardiac echo performed, received one unit of blood and was started on Lisinopril. He did have a blood transfusion five weeks ago here also. Complaint: Generalized weakness Onset/Timin -: Week(s) Location: Generalized Consistency: Constant Associated Symptoms: Other - [place] Coma Scale Eye Response: (4) Open spontaneously Motor Response: (6) Obeys commands Verbal Response: (5) Oriented Gloria Total: 15 - Related Data Home Medications Medication Instructions Recorded Confirmed Last Taken Citalopram Hydrobromide 20 mg PO DAILY 12/23/17 12/23/17 12/23/17 [Citalopram HBr] Lisinopril [Zestril] 5 mg PO DAILY 12/23/17 12/23/17 12/22/17 Allergies Allergy/AdvReac Type Severity Reaction Status Date / Time No Known Drug Allergies Allergy Verified 04/08/14 10:18 Travel Screening - Travel/Exposure Within Last 30 Days Have you traveled within the last 30 days?: No - Travel/Exposure Within Last Year Have you traveled outside the [place] in the last year?: No - Additonal Travel Details Have you been exposed to anyone with a communicable illness?: No - Travel Symptoms Symptom Screening: None Review of Systems Constitutional: Reports: Malaise. Denies: Chills, Fever Eyes: Denies: Eye discharge ENT: Denies: Congestion Respiratory: Denies: Cough, Dyspnea Cardiovascular: Denies: Chest pain Endocrine: Reports: Fatigue Gastrointestinal: Denies: Abdominal pain Genitourinary: Denies: Dysuria Musculoskeletal: Denies: Arthralgia Past Medical History - SOCIAL HISTORY Smoking Status: Current every day smoker Alcohol Use: None Drug Use: None - RESPIRATORY Hx Respiratory Disorders: No - CARDIOVASCULAR Hx Cardio Disorders: Yes Hx Hypertension: Yes (meds good control) Comment:: tires easily - NEURO Hx Neuro Disorders: Yes Comment:: occass. lightheadedness - GI Hx GI Disorders: Yes Hx Ulcer: Yes (20 yrs ago) Hx Wt Loss/Wt Gain: Yes (wt loss 30 lbs) - Hx Genitourinary Disorders: Yes Hx Prostate Problems: Yes (flomax) - ENDOCRINE Hx Endocrine Disorders: No - MUSCULOSKELETAL Hx Musculoskeletal Disorders: Yes - PSYCH Hx Psych Problems: No Hx Anxiety: No Hx Depression: No - HEMATOLOGY/ONCOLOGY Hx Hematology/Oncology Disorders: Yes Hx Cancer: Yes (hodgekins lymphoma per pt.) Hx Chemotherapy: Yes (on hold. last one 10-18-17) Hx Radiation Therapy: No Family Medical History Any Significant Family History?: No Hx Cancer: Mother *Cancer Comment: leukemia Hx Diabetes: Brother/Sister Hx HTN: Father, Mother, Brother/Sister Hx Kidney Disease: Father *Seizure Comment: grandson has epilepsy Hx Stroke: Mother Physical Exam - General General Appearance: Alert, Oriented x3, Cooperative, No acute distress - Head Head exam: Atraumatic, Normocephalic, Normal inspection - Eye Eye exam: Normal appearance, PERRL - Neck Neck exam: Normal inspection, Full ROM. negative: Tenderness - Respiratory Respiratory exam: Normal lung sounds bilaterally. negative: Respiratory distress - Cardiovascular Cardiovascular Exam: Regular rate, Normal rhythm, Normal heart sounds - GI/Abdominal GI/Abdominal exam: Soft, Normal bowel sounds. negative: Tenderness - Extremities Extremities exam: Normal inspection, Full ROM, Normal capillary refill. negative: Tenderness - Neurological Neurological exam: Alert. negative: Motor sensory deficit Course Vital Signs 12/23/17 16:28 Temperature 98.6 F Pulse Rate 100 H Respiratory 16 Rate Blood Pressure 131/69 Pulse Ox 99 - Reevaluation(s) Reevaluation #1: The patient is doing well at this time. I did discuss the lab results and the probability the patient will need some blood and stay in the hospital overnight and he does agree with the plan. I then did discuss the case with Elisabeth (DESTINEY) and she does accept the admission for Dr. Benoit. Per the Cardiology note from last week they would like the patient's Hgb to stay > 8. 12/23/17 17:51 12/23/17 17:57 12/23/17 18:45 Reevaluation #2: I did discuss the case with Dr. Immanuel Bowman who is banking consultant for the [facility] for the patient's Lecturer Of Portuguese Dr. Kumar and he does agree with the plan to admit and transfuse. He will contact Dr. Kumar tomorrow and they will also be following up with the patient. 12/23/17 18:14 Medical Decision Making - Data Complexity MDM Data: Labs Ordered and/or Reviewed, X-Ray Ordered and/or Reviewed, EKG Ordered and/or Reviewed - Lab Data Result diagrams: 12/24/17 06:35 12/24/17 06:35 - EKG Data -: EKG Interpreted by Me EKG: No Acute Changes, Unchanged From Previous - Radiology Data Radiology results: Report reviewed (CXR; No acute changes. Head CT; No acute changes.) Disposition Disposition: Admit Clinical Impression: Weakness Anemia Qualifiers: Anemia type: other cause Disposition: Still a Patient at [facility] Decision to Admit: Admit from ER Decision to Admit Date: 12/23/17 Decision to Admit Time: 17:58 Accepting Physician: Cy Time Discussed w/Accepting Physician: 17:58 Condition: (2) Stable Time of Disposition: 17:58 Quality - Quality Measures Quality Measures: N/A - Blood Pressure Screening View Details: Yes Does Patient Have Any of the Following: No Blood Pressure Classification: Pre-Hypertensive BP Reading Systolic Measurement: 131 Diastolic Measurement: 69 Screening for High Blood Pressure: < Pre-Hypertensive BP, F/U Documented > [ [id number]] Pre-Hypertensive Follow-up Interventions: Referral to alternative/primary care provider.
[2017-12-23 16:54] LABS: HEMATOCRIT 22.5 % (42.0-52.0); HEMOGLOBIN 7.2 gm/dl (14.0-18.0); MEAN CELL VOLUME 97.4 fl (81-97); MEAN PLATELET VOLUME 10.7 fl (7.4-10.4); PLATELET COUNT 67 K/uL (130-400); RED BLOOD COUNT 2.31 M/uL (4.40-5.70); RED CELL DISTRIBUTION WIDTH 19.1 % (11.5-14.5); WHITE BLOOD COUNT W/O DIFF 11.1 K/uL (4.2-12.2)
[2017-12-23 16:57] LABS: MEAN CORPUSCULAR HEMOGLOBIN 31.1 pg (27-33)
[2017-12-23 17:10] LABS: HYPOCHROMIA 2+; PLATELET ESTIMATE DECREASED (NORMAL)
[2017-12-23 17:14] LABS: ALB/GLOB RATIO 1.1 (1.1-1.8); ALBUMIN 2.7 g/dL (4.0-5.0); ALKALINE PHOSPHATASE 126 U/L (40-129); ALT/SGPT 39 U/L (<41); AST/SGOT 26 U/L (10.0-50.0); BLOOD UREA NITROGEN 22 mg/dL (8-23); CREATININE 0.5 mg/dL (0.7-1.2); EST GLOMERULAR FILTRATION RATE > 60 mL/min; GLUCOSE,RANDOM 112 mg/dL (74-109); TOTAL PROTEIN 5.1 g/dL (6.6-8.7)
[2017-12-23 17:32] LABS: ABO GROUP O; ANTIBODY SCREEN NEGATIVE (NEGATIVE); RH TYPE POSITIVE
[2017-12-23 18:23] LABS: URINE APPEARANCE SL CLOUDY; URINE BILIRUBIN NEGATIVE (NEGATIVE); URINE BLOOD NEGATIVE (NEGATIVE); URINE COLOR ORANGE; URINE GLUCOSE (UA) NEGATIVE (NEGATIVE); URINE KETONE NEGATIVE (NEGATIVE); URINE LEUKOCYTE ESTERASE NEGATIVE (NEGATIVE); URINE NITRITE NEGATIVE (NEGATIVE); URINE PROTEIN NEGATIVE (NEGATIVE)
[2017-12-23] MEDS ORDERED: FUROSEMIDE IV 20MG/2ML VIAL IVP ONE (18:32)
[2017-12-23 18:34] LABS: IMMED. SPIN CROSSMATCH COMPATIBLE
[2017-12-23 18:47] LABS: IMMED. SPIN CROSSMATCH COMPATIBLE
[2017-12-23] MEDS ORDERED: ACETAMINOPHEN 500 MG TABLET PO PRN (19:49)
[2017-12-23] MEDS ORDERED: LORAZEPAM 0.5 MG TABLET PO PRN (19:49)
[2017-12-23] MEDS ORDERED: ONDANSETRON 4 MG ODT TABLET PO PRN (19:49)
[2017-12-23] MEDS ORDERED: METOCLOPRAMIDE 10 MG TABLET PO PRN (19:49)
[2017-12-23 23:24] LABS: CKMB 4.7 ng/mL (<6.73)
[2017-12-24] MEDS ORDERED: HEPARIN SODIUM FLUSH 100 UNITS/ML SYR 5ML IVP ONE (04:06)
[2017-12-24] MEDS ORDERED: 0.9 % SODIUM CHLORIDE 10ML SYR IVP ONE ×2 (04:07→06:42)
[2017-12-24] MEDS ORDERED: HEPARIN SODIUM FLUSH 100 UNITS/ML SYR 5ML IV ONE (06:42)
[2017-12-24 07:14] LABS: HEMATOCRIT 25.3 % (42.0-52.0); HEMOGLOBIN 8.2 gm/dl (14.0-18.0); MEAN CELL VOLUME 95.1 fl (81-97); MEAN CORPUSCULAR HEMOGLOBIN 30.8 pg (27-33); MEAN CORPUSCULAR HGB CONC 32.4 g/dl (32-36); MEAN PLATELET VOLUME 12.3 fl (7.4-10.4); PLATELET COUNT 64 K/uL (130-400); RED BLOOD COUNT 2.66 M/uL (4.40-5.70); RED CELL DISTRIBUTION WIDTH 17.8 % (11.5-14.5); WHITE BLOOD COUNT W/O DIFF 7.8 K/uL (4.2-12.2)
[2017-12-24 07:28] LABS: BLOOD UREA NITROGEN 16 mg/dL (8-23); CREATININE 0.4 mg/dL (0.7-1.2); EST GLOMERULAR FILTRATION RATE > 60 mL/min; GLUCOSE,RANDOM 87 mg/dL (74-109)
[2017-12-24 07:35] LABS: CKMB 4.2 ng/mL (<6.73)
[2017-12-24 07:48] LABS: PLATELET ESTIMATE DECREASED (NORMAL)
[2017-12-24] MEDS ORDERED: TAMSULOSIN HCL 0.4 MG CAP.ER.24H PO SCH (10:00)
[2017-12-24] MEDS ORDERED: METOPROLOL SUCC 50 MG TABLET PO SCH (10:00)
[2017-12-24] MEDS ORDERED: LISINOPRIL 5 MG TABLET PO SCH (10:00)
[2017-12-24] MEDS ORDERED: CITALOPRAM 20 MG TABLET PO SCH (10:00)
[2017-12-24] MEDS: ASPIRIN 81 MG CHEWABLE TABLET PO SCH (10:59)
--- NOTE | 2017-12-24 12:22 | CT SCAN REPORT ---
EXAM: CT OF THE BRAIN WITHOUT CONTRAST HISTORY: WEAKNESS. TECHNIQUE: Sequential axial images were obtained from the foramen magnum to the vertex without contrast administration. FINDINGS: The brain volume is normal. No large territorial infarct, hemorrhage , mass effect, or midline shift. No extraaxial fluid collection. The orbits, paranasal sinuses and mastoid air cells are normal. IMPRESSION: NO ACUTE INTRACRANIAL ABNORMALITY IS APPRECIATED. JOB NUMBER: [id number] MTDD
--- NOTE | 2017-12-24 12:25 | RADIOLOGY REPORT ---
EXAM: CHEST, TWO VIEWS HISTORY: DECREASED HEMOGLOBIN. TECHNIQUE: Frontal and lateral views of the chest were performed. Comparison: 12/14/17. FINDINGS: There is a right [id number] catheter in place. The heart size is normal. There is a tortuous thoracic aorta redemonstrated as a nodular density projecting over the left lower lobe measuring 2.7 cm. No new infiltrate or pleural effusion. IMPRESSION: 1. STABLE NODULAR DENSITY PROJECTING OVER THE LEFT LUNG BASE. THIS MEASURES 2.7 CM. 2. RIGHT [id number] CATHETER IN PLACE. JOB NUMBER: [id number] MTDD
--- NOTE | 2017-12-24 12:50 | Rehab Evaluation ---
Patient Information - Patient Information Diagnosis: Acute Symptomatic Anemia with Severe Weakness Ordered Treatment: PT Evaluate and Treat Status: Initial Evaluation Surgery: No History: Detail (He reports some falls recently due to weakness from bouts of chemotherapy. He doesn't report any pain at this time.) Past Medical/Surgical Hx: PAST MEDICAL/SURGICAL HISTORY Past Surgical History right and left inguinal lymph node bx; rt cataract removal w lens implant 10-03-2015; left cataract removal ; colonoscopy; Core -inguinal (L) biopsy ; Port a cath 11/2017-R chest. PMH - Respiratory Hx Respiratory Disorders No PMH - Cardiovascular Hx Cardiovascular Disorders Yes Hx Hypertension Yes: meds good control Comment: tires easily PMH - Neuro Hx Neurological Disorders Yes Comment: occass. lightheadedness PMH - GI Hx Gastrointestinal Disorders Yes Hx Ulcer Yes: 20 yrs ago Hx Weight Loss/Weight Gain Yes: wt loss 30 lbs PMH - Hx Genitourinary Disorders Yes Hx Prostate Problems Yes: flomax PMH - Endocrine Hx Endocrine Disorders No PMH - Musculoskeletal Hx Musculoskeletal Disorders Yes PMH - Psych Hx Psychiatric Problems No Hx Anxiety No Hx Depression No PMH - Hematology/Oncology Hx Hematology/Oncology Yes Disorders Hx Cancer Yes: hodgekins lymphoma per pt. Hx Chemotherapy Yes: on hold. last one 10-18-17 Hx Radiation Therapy No Social History: Detail (The patient lives in a ranch style home with his . The home has a basement that he rarely frequents. The house has two steps to enter that does not have a railing, but has columns close by that he can use for balance. The patient's bathroom has a walk-in shower with a shower seat. His toilet is a standard height. The toilet and shower do not have grab bars present. The patient states that he uses a four point cane for ambulation, but does have a 4WW, 2WW, Std. walker, and a wheelchair at home. He states that his is helping him with his ADL's, mainly dressing and showering.) - Time With Patient Total Time Spent With Patient (Min): 30 Treatment Procedures: Detail (PT Initial Evaluation) Subjective Information - Subjective Information Per Patient (States that he is feeling fatigued today after not sleeping well last night due to multiple phone calls.) Objective Data - Pain Pain Present: No Pain Intensity: 0 Pain Scale Used: Numeric (1 - 10) - Mental Status Patient Orientation: Oriented x3 - Visual Perception Deficit (Upon standing/walking, he complained of a visual deficit with distance vision. He stated that he had a "shadow" type spot with a target about 8 feet away.) - ROM Within normal limits - Strength/Tone Not within normal limits (The patient showed some strength deficits. Strength grades were: B HS, Quads, Hip Flexors 4/5. B Hip Abductors/Adductors, Ankle Plantar/Dorsiflexors 4+/5) - Bed Mobility Independent (Patient was independent in supine to sit from L Side-lying. Independent from sit to supine to L side-lying.) - Transfers Needs Assist (The patient needed min. assit x 1 for sit to stand from an armless chair. He was able to go from sit to stand with an armed chair with CGA x1) - Balance Balance Sitting: Good (The patient showed no LOB during static sitting at the EOB.) Balance Standing: Fair (Upon standing/ambulation, the patient would lean to one side so he could offload one LE, then he would shift over to the other LE. The patient did not have any LOB with standing or ambulating, but he did not seem confident in his own balance abilities.) - Sensation Deficit (Had some complaints of numbness/tingling in his R UE on the medial side of the palmar surface.) - Gait Detail (The patient used a 2WW to ambulate from his bed to before his doorway with CGA x1 (about 10 feet), but then the complaints of impaired vision began ( symptoms described above). He needed a chair to rest at this point, but was able to walk back to his bed with CGA x1 (about 10 feet).) - Special Tests No Therapy Assessment - Therapy Assessment Detail (The patient shows general fatigue due to his current medical condition. Specific muscle testing showed minimal weakness, but upon functional movements, such as ambulation and sit to stand transfers, he showed more weakness and minimal capacity for activity. The patient's chief complaint mirrors these symptoms as well. He has impaired standing balance and ability to ambulate due to this functional weakness. He would benefit from further short-term sub-acute rehab to work on gait training, transfer training, and lower extremity strengthening.) Patient Education - Patient Education Barriers To Learning: None Problem List - Problem List Physical Therapy Problem List: Detail (1) Decreased standing balance 2) Decreased functional strength 3) Decreased muscle strength 4) Difficulty walking ) Goals - Goals Physical Therapy Goals: 1) Will increase LE strength of all LE muscles to 4+/5 to increase ability for functional mobility. 2) The patient will ambulate with least restrictive assistive device for household ambulation. 3) Assess balance using functional score Prognosis - Prognosis Moderate Plan - Plan Physical Therapy Plan: The patient will be seen 1-2x/day M-F for gait training, transfer training, and LE strengthening.
--- NOTE | 2017-12-24 12:58 | Rehab Evaluation ---
Patient Information - Patient Information Diagnosis: Acute Symptomatic Anemia with Severe Weakness Ordered Treatment: OT Evaluate and Treat Status: Initial Evaluation Surgery: No Past Medical/Surgical Hx: PAST MEDICAL/SURGICAL HISTORY Past Surgical History right and left inguinal lymph node bx; rt cataract removal w lens implant 10-03-2015; left cataract removal ; colonoscopy; Core -inguinal (L) biopsy ; Port a cath 11/2017-R chest. PMH - Respiratory Hx Respiratory Disorders No PMH - Cardiovascular Hx Cardiovascular Disorders Yes Hx Hypertension Yes: meds good control Comment: tires easily PMH - Neuro Hx Neurological Disorders Yes Comment: occass. lightheadedness PMH - GI Hx Gastrointestinal Disorders Yes Hx Ulcer Yes: 20 yrs ago Hx Weight Loss/Weight Gain Yes: wt loss 30 lbs PMH - Hx Genitourinary Disorders Yes Hx Prostate Problems Yes: flomax PMH - Endocrine Hx Endocrine Disorders No PMH - Musculoskeletal Hx Musculoskeletal Disorders Yes PMH - Psych Hx Psychiatric Problems No Hx Anxiety No Hx Depression No PMH - Hematology/Oncology Hx Hematology/Oncology Yes Disorders Hx Cancer Yes: hodgekins lymphoma per pt. Hx Chemotherapy Yes: on hold. last one 10-18-17 Hx Radiation Therapy No Premorbid Status: Detail (Pt lives with in a 1 story house with basement, he stays mainly on the first floor. He has 2 steps and columns at the entrance. He has a walk in shower with a seat, no grab bars and a standard height toilet, no grab bars. He reports that he used to be responsible for home mgmt, meal prep and laundry activities but he has been unable to perform these recently and his is helping him with IADLs and some self care tasks. He amb with a quad cane. He has a 2 wheeled, 4 wheeled and standard walker and wheelchair.) Precautions: [place], Fall - Time With Patient Total Time Spent With Patient (Min): 35 Treatment Procedures: Detail (OT eval low complexity) Subjective Information - Subjective Information Per Patient Objective Data - Pain Pain Present: No - Mental Status Patient Orientation: Oriented x3 - Visual Perception Deficit (Pt wears glasses. During eval he reported a "black spot" in his visual field when looking through his right eye.) - ROM Within normal limits (Pankaj UE AROM WNL) - Strength/Tone Within normal limits (Pankaj UE strength 4+/5. Overall endurance is very impaired. ) - Coordination Appears within normal limits for therapeutic activities - Bed Mobility Independent (Ind with supine to sit and sit to supine.) - Transfers Needs Assist (Ind with sit to stand from EOB, min assist needed for sit to stand from chair.) - Balance Balance Sitting: Good Balance Standing: Fair - Sensation Deficit (Pt reports numbness at times in his hands due to medications.) - Gait Detail (Pt ambulated several feet with 2 wheeled walker and CG assist. Pt very fatigued with ambulation.) - ADL's/IADL's Detail (Pt reports he is using urinal as he has been unable to ambulate to the bathroom. He was able to don slip on shoes Indly. Other ADLs not formally assessed.) Therapy Assessment - Therapy Assessment Detail (Pt presents with significantly impaired endurance needed for self cares and functional mobility.) Problem List - Problem List Occupational Therapy Problem List: Detail (1. Decreased Ind with self care activities due to impaired endurance. 2. Decreased functional mobility. 3. Significantly impaired endurance needed for safe and Ind ADLs.) Goals - Goals Occupational Therapy Goals: 1. Pt will be Ind with showering. 2. Pt will be Ind with dressing. 3. Pt will demonstrate improved endurance needed for safe and Ind ADLs. Prognosis - Prognosis Good Plan - Plan Occupational Therapy Plan: OT 2-4 times per week to address endurance, self cares and functional mobility. Pt may benefit from short IP rehab/swing bed stay to allow safe return home.
--- NOTE | 2017-12-24 14:51 | Medical Records Consult ---
DATE OF CONSULTATION: 12/24/2017 REASON FOR CONSULTATION: Elevated troponin. HISTORY OF PRESENT ILLNESS: Briefly, the patient is a 72-year-old gentleman who has non-Hodgkin lymphoma and chronic anemia and was just recently discharged to [facility] after presenting with fatigue. Cardiac-chavarria, he had elevated troponins. He was evaluated by Cardiology at [facility] and is transferred up to that institution. It was felt it was a nonspecific finding and did not warrant any further workup. He went home last Wednesday and returned to the emergency room here on 12/23/2017 because of continued fatigue and weakness. He was admitted for anemia and received 2 units of blood last night. He feels somewhat better. He denies any active chest pain, denies any PND or orthopnea. Once again, troponin was checked. It is mildly elevated at 0.08. He has normal CPK, normal CPK-MB band. No acute changes on EKG. REVIEW OF SYSTEMS: A 10-point review of systems reviewed. Pertinent positives in HPI. PAST MEDICAL HISTORY: See HPI. SOCIAL HISTORY: The patient continues to smoke every day, does not use alcohol. FAMILY HISTORY: Positive for cancer, leukemia, kidney disease, seizure disorder. HOME MEDICATIONS: 1. Lisinopril 5 mg a day. 2. Citalopram 20 mg a day. ALLERGIES: None known. PHYSICAL EXAMINATION: VITAL SIGNS: Reviewed and confirmed. GENERAL: Pale, cachectic white male lying flat in bed. No acute distress. HEAD, EYES, EARS, NOSE, THROAT: Normocephalic and atraumatic. Lids, conjunctivae, and sclerae are clear. NECK: Without bruits. CHEST: Decreased breath sounds at the bases. CARDIOVASCULAR: Regular without gallops, lifts, or heaves. ABDOMEN: Soft. EXTREMITIES: Warm. No edema is noted. IMPRESSION: 1. Lymphoma. 2. Anemia. 3. Elevated troponin, nonspecific, not cardiac in etiology. PLAN: From a cardiac standpoint, no further testing is required in the future. Would rely on CPKs as a measure of myocardial ischemia and stop checking troponins. The patient will follow up with Dr. Lim, his primary medical attendant, as previously scheduled. [facility]ITALJoe
[2017-12-24] MEDS ORDERED: SODIUM CHLORIDE IV ONE (15:03)
[2017-12-24] MEDS: CITALOPRAM 20 MG TABLET PO SCH (22:08)
[2017-12-24] MEDS: TAMSULOSIN HCL 0.4 MG CAP.ER.24H PO SCH (22:08)
[2017-12-24] MEDS: LISINOPRIL 5 MG TABLET PO SCH (22:08)
[2017-12-25 06:11] LABS: HEMATOCRIT 24.3 % (42.0-52.0); HEMOGLOBIN 7.8 gm/dl (14.0-18.0)
[2017-12-25 06:21] LABS: BLOOD UREA NITROGEN 14 mg/dL (8-23); CREATININE 0.3 mg/dL (0.7-1.2); EST GLOMERULAR FILTRATION RATE > 60 mL/min; GLUCOSE,RANDOM 99 mg/dL (74-109)
[2017-12-25] MEDS ORDERED: HYDROXYZINE PAMOATE 25 MG CAPSULE PO ONE (09:38)
[2017-12-25] MEDS: ASPIRIN 81 MG CHEWABLE TABLET PO SCH (10:11)
[2017-12-25] MEDS: METOPROLOL SUCC 25 MG TAB.ER PO SCH (10:11)
[2017-12-25] MEDS: ENOXAPARIN 40 MG/0.4 ML SYR SQ SCH (11:46)
[2017-12-25] MEDS: CITALOPRAM 20 MG TABLET PO SCH (22:18)
[2017-12-25] MEDS: TAMSULOSIN HCL 0.4 MG CAP.ER.24H PO SCH (22:18)
[2017-12-25] MEDS: LISINOPRIL 5 MG TABLET PO SCH (22:19)
[2017-12-26] MEDS: 0.9 % SODIUM CHLORIDE 1000ML 1,000 ML IV PRN ×2 (06:01→21:15)
[2017-12-26 06:32] LABS: HEMATOCRIT 23.9 % (42.0-52.0); HEMOGLOBIN 7.7 gm/dl (14.0-18.0)
[2017-12-26 06:49] LABS: BLOOD UREA NITROGEN 11 mg/dL (8-23); CREATININE 0.4 mg/dL (0.7-1.2); EST GLOMERULAR FILTRATION RATE > 60 mL/min; GLUCOSE,RANDOM 92 mg/dL (74-109)
[2017-12-26] MEDS: METOPROLOL SUCC 25 MG TAB.ER PO SCH (09:34)
[2017-12-26] MEDS: ASPIRIN 81 MG CHEWABLE TABLET PO SCH (09:34)
[2017-12-26] MEDS: ENOXAPARIN 40 MG/0.4 ML SYR SQ SCH (09:34)
[2017-12-26 10:24] LABS: IMMED. SPIN CROSSMATCH COMPATIBLE
[2017-12-26] MEDS: CITALOPRAM 20 MG TABLET PO SCH (21:13)
[2017-12-26] MEDS: TAMSULOSIN HCL 0.4 MG CAP.ER.24H PO SCH (21:13)
[2017-12-26] MEDS: LISINOPRIL 5 MG TABLET PO SCH (21:14)
[2017-12-27 07:24] LABS: HEMOGLOBIN 8.8 gm/dl (14.0-18.0)
--- NOTE | 2017-12-27 08:42 | Discharge Note ---
VTE H&P Assessment - Risk for VTE Risk for VTE: Yes Risk Level: Moderate Risk Assessment Date: 12/25/17 Risk Assessment Time: 10:00 VTE Orders Placed or Will Be Placed: Yes Discharge Medications - Discharge Medications Home Medications: Ambulatory Orders Metoprolol Succinate 25 mg PO DAILY 11/17/17 [Last Taken 12/14/17] Ondansetron [Zofran Odt] 4 mg PO Q8H PRN 11/17/17 [Last Taken 12/14/17] Tamsulosin HCl [Flomax] 0.4 mg PO QHS 11/17/17 [Last Taken 12/14/17] Aspirin 81 mg PO DAILY 12/14/17 [Last Taken 12/14/17] Lorazepam [Ativan] 0.5 mg PO BID PRN 12/14/17 [Last Taken 12/22/17] Metoclopramide HCl 10 mg PO DAILY PRN 12/14/17 [Last Taken Unknown] Citalopram Hydrobromide [Citalopram HBr] 20 mg PO QHS 12/23/17 [Last Taken 12/23] Lisinopril [Zestril] 5 mg PO QHS 12/23/17 [Last Taken 12/22/17] Acetaminophen [Tylenol 500Mg Tab] 500 mg PO Q6H PRN tablet 12/27/17 [Last Taken Unknown] Discharge Note - Date Date of Discharge Note: 12/27/17 Disposition: Inpatient Rehab Facility Condition: (2) Stable Additional Instructions: follow up with Dr Meza as scheduled end of dec follow up with primary Dr. Lara who is taking over for Dr. Issa in 2-3 weeks after discharge from rehab recommended weekly hg and hct and BMP starting jan 03 Forms: Patient Portal Access Activity at Discharge: As Per Physical Therapy, Increase Activity as Tolerated
--- NOTE | 2017-12-27 09:47 | History and Physical Report ---
DATE: 12/24/2017 at 3 p.m. CHIEF COMPLAINT: Weakness, anemia, lymphoma, not able to ambulate. HISTORY OF PRESENT ILLNESS: This 72-year-old male is getting cancer therapy treatment from Dr. Mccallum. His primary doctor is Dr. Lara. He got treatment last week and it always makes him feel very weak and he becomes anemic. He has had to have 3 blood transfusions in the past and usually gets stronger a little bit after his treatment but he states that he is tired all the time, more so this time and he is not able to ambulate. is not able to take care of him. PAST MEDICAL HISTORY: Non-Hodgkin lymphoma, hypertension, peptic ulcer 20 years ago. PAST SURGICAL HISTORY: Right and left inguinal lymph node biopsies, right cataract removal with lens implant in 2014, left cataract 2014, colonoscopy. He also has a port in. MEDICATIONS: 1. Flomax 0.4 mg q.h.s. 2. Zestril 5 mg q.h.s. 3. Citalopram 20 mg h.s. 4. Zofran 4 mg q.8 h. p.r.n. 5. Metoprolol succinate 25 mg daily. 6. Reglan 10 mg daily p.r.n. 7. Ativan 0.5 mg b.i.d. p.r.n. 8. Aspirin 81 mg daily. ALLERGIES: No known allergies. FAMILY/PSYCHOSOCIAL HISTORY: Smokes cigarettes, about a pack a day. No alcohol or drug use. Mother had leukemia. Brother and sister had diabetes. Father hypertension. Mother hypertension. Brother and sister hypertension. Kidney disease for the father. Grandson has epilepsy and mother had a stroke. REVIEW OF SYSTEMS: HEENT: No upper respiratory infection symptoms, cough, cold, or congestion. Cardiovascular: No chest pain, palpitations, or arrhythmia. Respiratory: No cough, cold, or congestion. He is very weak. Gastrointestinal: No nausea, vomiting, diarrhea, black stools, or bloody stools. Genitourinary: No dysuria, hematuria, frequency, or burning on urination. Musculoskeletal: He does have some diffuse chronic low back pain. Neurological: No CVA, paralysis, or paresthesias. Endocrine: No diabetes or thyroid disease. Integument: No rash, ulcers, change in moles, or yellow skin. Hematologic: He has non-Hodgkin lymphoma. PHYSICAL EXAMINATION: VITALS: Height 6 feet, weight 161 pounds. Temperature 98.3, pulse 93, blood pressure 117/62, respiratory rate 17, pulse ox 97% on room air. Weight 161.6. HEENT: Pupils are equal, round, and reactive to light and accommodation. Extraocular muscles are intact. Throat is clear. Nose is clear. Tympanic membranes are choe. NECK: Supple. No jugular venous distention. No hepatojugular reflux. No carotid bruits. Thyroid is smooth. SKIN: His skin is pale. Looks a little jaundiced. He has a sallow look to his skin. CARDIOVASCULAR: Regular rate and rhythm without murmurs, clicks, rubs, or gallops. RESPIRATORY: Clear to auscultation and percussion. ABDOMEN: Soft, nontender. No hepatosplenomegaly, no masses, no tenderness. Bowel sounds are active. He reports to me that he had a Hemoccult stool which was negative. We will get a second Hemoccult stool just to confirm it. I do not see it in the computer. EXTREMITIES: No pitting edema. No cyanosis, no clubbing. Full range of motion. Peripheral pulses are good. BREASTS: Normal male breasts. GENITALIA: Normal male genitalia. NEUROLOGIC: Cranial nerves II-XII intact. No gross defects. Sensation normal, strength normal. Deep tendon reflexes equal bilaterally with Babinski negative. MENTAL STATUS: Alert and oriented x3. IMPRESSION: 1. Non-Hodgkin lymphoma. 2. Anemia. 3. Dehydration. 4. Weakness, unable to ambulate. PLAN: Two units of blood were transfused. IV fluids to hydrate him. He looks very dry at my evaluation. Some rehab evaluate and treat, possible rehab placement because he is too weak to manage at home. His is very ill herself and cannot take care of him. INPATIENT CERTIFICATION: Admit to inpatient care. Based on my medical assessment, after consideration of patient's risk factors, age, comorbidities, and patient's presenting symptoms and acuity, I expect that this patient will remain in the hospital greater than or equal to 2 midnights and that the services needed warrant inpatient care because of his lymphoma, anemia, weakness, and inability to take care of himself. Estimated length of stay is 3 days. The patient may reasonably be expected to be discharged or transferred to a hospital within 96 hours after admission to [facility]. I certify that my determination is in accordance with my understanding of Medicare requirements for reasonable and necessary inpatient services. KUSUM
[2017-12-27] MEDS: METOPROLOL SUCC 25 MG TAB.ER PO SCH (09:55)
[2017-12-27] MEDS: ASPIRIN 81 MG CHEWABLE TABLET PO SCH (09:55)
[2017-12-27] MEDS: ENOXAPARIN 40 MG/0.4 ML SYR SQ SCH (09:58)
[2017-12-27] MEDS ORDERED: HEPARIN SODIUM FLUSH 100 UNITS/ML SYR 5ML IVP SCH (10:02)
[2017-12-27] MEDS ORDERED: 0.9 % SODIUM CHLORIDE 10ML SYR IVP SCH (10:15)
--- NOTE | 2017-12-27 11:11 | Discharge Summary ---
DATE OF DISCHARGE: 12/27/2017, 8:35 a.m. DISCHARGE DIAGNOSES: 1. Non-Hodgkin lymphoma. 2. Anemia of chronic disease. Last hemoglobin 8.8. 3. Hyponatremia. Treatment will be by increasing salt in his diet. 4. Weakness, resolving. 5. Need for rehab for deconditioning. 6. Dehydration, resolved. 7. Anxiety. 8. Decreased ejection fraction from chemotherapy. His ejection fraction is around 33%. He was 55% before chemotherapy started. Hopefully, this will resolve. Cardiology has seen him and placed him on lisinopril 5 mg once a day. ATTENDING PHYSICIAN: Kolton Mehta D.O. PRIMARY CARE PHYSICIAN: Shawn Lara M.D. REASON FOR HOSPITALIZATION: Weakness, anemia. His cancer doctor felt he needed to go into the hospital for blood transfusions. He has had this happen 2 times before after his cancer therapy. His hemoglobin would drop, and he would be very weak, requiring blood transfusion. His primary care physician is Dr. Lara, and his oncologist is Dr. Meza, phone number [phone], out of [facility]. His oncologist wanted him inpatient for transfusions and to get stronger. SIGNIFICANT FINDINGS IN THE HOSPITAL: His laboratory initially was hemoglobin 7.2 after 2 units of blood. It went up to 8.2 but drifted down to 7.7. They gave him another unit of blood and it went up to 8.8. His sodium is 126 on discharge. He said it normally runs around 129. His BUN is 11, creatinine 0.4, potassium 3.6, chloride 91. WBC 7,800, platelet count 64,000, neutrophils 93%, lymphocytes 5%. He had a head CT showing on acute intracranial abnormality. He also had a chest x-ray, which showed stable nodular density projected over the left lung basis. This measured 2.7 cm. Right Infusaport in place. He had 2 EKGs showing sinus rhythm, no acute ST-T wave changes. His troponin I was slightly elevated. He has had previous troponin I's that were slightly elevated. He has been worked up at [facility] for the increased elevation. He had a reconsult with Dr. Castorena, who felt that the troponin I's are not cardiac in etiology and recommended not checking troponin I's and only following his heart problem with CKMB's. THERAPY PROVIDED: He was transfused with 3 units of blood. CONSULTATION: Dr. Castorena, who felt his troponin I was not elevated because of cardiac disease and was more because of his underlying conditions. CONDITION AT DISCHARGE: Slightly improved, stronger, walking around the room without assistance, however, very weak and only has the capacity to walk maybe 5 steps, and he is very winded and exhausted. DISCHARGE INSTRUCTIONS: We will discharge to rehab to get stronger, because of deconditioning from his lymphoma, non-Hodgkin; anemia of chronic disease, and hyponatremia. Recommended he eat more salt in his diet. Also recommended he have hemoglobin, hematocrit, and a basic metabolic profile on 01/03/2018 and weekly thereafter, and Oncology is to manage that. Please have him follow up with his oncologist as scheduled at the end of December; I believe it is 01/04/2018, and also follow up with his primary doctor, Dr. Lara, after he is discharged from rehab. DISCHARGE MEDICATIONS: 1. Zofran4 mg every 8 hours p.r.n. 2. Aspirin 81 mg daily. 3. Celexa 20 mg each night. 4. Flomax 0.4 mg each night. 5. Lisinopril 5 mg daily. 6. Toprol XL 25 mg daily. MTDD
== END 2017-12-27 11:40 | DRG 812 ==
LOC: ER 16:27 → OBSVTOIN 19:29 → MEDSURG 19:29
PROVIDERS: ADMIT Emergency Medicine; ATTEND Emergency Medicine
PROC: 30233N1 Transfusion of Nonautologous Red Blood Cells into Peripheral Vein, Percutaneous Approach (ICD-10-PCS; 2017-12-23)
PROC: 30233N1 Transfusion of Nonautologous Red Blood Cells into Peripheral Vein, Percutaneous Approach (ICD-10-PCS; 2017-12-24)
PROC: 30233N1 Transfusion of Nonautologous Red Blood Cells into Peripheral Vein, Percutaneous Approach (ICD-10-PCS; principal; 2017-12-26)
DX: D64.81 Anemia due to antineoplastic chemotherapy (principal); C85.90 Non-Hodgkin lymphoma, unspecified, unspecified site; E87.1 Hypo-osmolality and hyponatremia; D63.8 Anemia in other chronic diseases classified elsewhere; E86.0 Dehydration; R53.1 Weakness; Z72.0 Tobacco use; R53.83 Other fatigue; I10 Essential (primary) hypertension; F17.210 Nicotine dependence, cigarettes, uncomplicated; R79.89 Other specified abnormal findings of blood chemistry; F41.9 Anxiety disorder, unspecified
CPT/HCPCS: 36430; 70450; 71046; 80048; 80053; 81003; 82272; 82550; 82553; 84484; 85014; 85018; 85027; 86850; 86900; 86901; 87427; 87493; 93005; 93010; 96374; 96375; 97165; 99223; 99233; 99239; 99285; J1650; J1940; J7030

== ENCOUNTER 2018-01-16 16:48 | Emergency (ER) | payer MEDICARE, BC ==
[2018-01-16] MEDS ORDERED: 0.9 % SODIUM CHLORIDE 1,000 ML BAG IV ONE (17:12)
--- NOTE | 2018-01-16 17:14 | Emergency Department Record ---
History of Present Illness - General Chief complaint: Nausea, Vomiting, Diarrhea Stated complaint: DIARRHEA,VERY LITTLE URINE OUTPUT Time Seen by Provider: 01/16/18 17:08 Source: Patient Mode of Arrival: Ambulatory Limitations: No limitations - History of Present Illness Initial comments: The patient is here due to feeling weak for 2-3 weeks due to frequent diarrhea. He is presently being treated for Lymphoma and his last chemo was 6 days ago. The patient states his diarrhea has been chronic but worse the last few days. There is no AP, nausea, vomiting, fever, or chills. He did have a neg set of stool cultures about 3 weeks ago and did have a neg C-diff stool test yesterday also. Now the patient feels like he may be dehydrated and is having low urine output. MD complaint: Diarrhea Onset/Timin -: Week(s) Description of Diarrhea: Water Associated Abdominal Pain: No Improves with: None Worsens with: Eating Associated Symptoms: Denies other symptoms - Related Data Previous Rx's Medication Instructions Recorded Acetaminophen [Tylenol 500Mg Tab] 500 mg PO Q6H PRN tablet 12/27/17 Potassium Chloride [Klor-Con 10] 10 meq PO DAILY #5 tablet.er 01/16/18 Allergies Allergy/AdvReac Type Severity Reaction Status Date / Time No Known Drug Allergies Allergy Verified 01/16/18 17:06 Travel Screening - Travel/Exposure Within Last 30 Days Have you traveled within the last 30 days?: No Review of Systems Constitutional: Denies: Chills, Fever Eyes: Denies: Eye discharge ENT: Denies: Congestion Respiratory: Denies: Cough, Dyspnea Past Medical History - SOCIAL HISTORY Smoking Status: Current every day smoker Alcohol Use: None Drug Use: None - RESPIRATORY Hx Respiratory Disorders: No - CARDIOVASCULAR Hx Cardio Disorders: Yes Hx Hypertension: Yes Comment:: tires easily - NEURO Hx Neuro Disorders: Yes Comment:: occass. lightheadedness - GI Hx GI Disorders: Yes Hx Ulcer: Yes Hx Wt Loss/Wt Gain: Yes - Hx Genitourinary Disorders: Yes Hx Prostate Problems: Yes (flomax) - ENDOCRINE Hx Endocrine Disorders: No - MUSCULOSKELETAL Hx Musculoskeletal Disorders: Yes - PSYCH Hx Psych Problems: No Hx Anxiety: No Hx Depression: No - HEMATOLOGY/ONCOLOGY Hx Hematology/Oncology Disorders: Yes Hx Cancer: Yes (hodgekins lymphoma per pt.) Hx Chemotherapy: Yes Hx Radiation Therapy: No Family Medical History Any Significant Family History?: Yes Hx Cancer: Mother *Cancer Comment: leukemia Hx Diabetes: Brother/Sister Hx HTN: Father, Mother, Brother/Sister Hx Kidney Disease: Father *Seizure Comment: grandson has epilepsy Hx Stroke: Mother Physical Exam - General General Appearance: Alert, Oriented x3, Cooperative, No acute distress - Head Head exam: Atraumatic, Normocephalic, Normal inspection - Eye Eye exam: Normal appearance, PERRL - ENT Throat exam: Normal inspection. negative: Tonsillar erythema, Tonsillar exudate - Neck Neck exam: Normal inspection, Full ROM. negative: Tenderness - Respiratory Respiratory exam: Normal lung sounds bilaterally. negative: Respiratory distress - Cardiovascular Cardiovascular Exam: Regular rate, Normal rhythm, Normal heart sounds - GI/Abdominal GI/Abdominal exam: Soft, Normal bowel sounds. negative: Tenderness - Extremities Extremities exam: Normal inspection, Full ROM, Normal capillary refill. negative: Tenderness - Neurological Neurological exam: Alert, Normal gait. negative: Abnormal gait, Motor sensory deficit Course Vital Signs 01/16/18 17:03 Temperature 97.9 F Pulse Rate 49 L Respiratory 20 Rate Blood Pressure 120/68 Pulse Ox 100 - Reevaluation(s) Reevaluation #1: The patient is doing a lot better at this time. He is taking fluids without any difficulty and denies any AP, nausea or vomiting and has had no diarrhea here in the ED. I did explain to him that I am not sure why he is having the diarrhea and can only recommend low dose Immodium. With his stool tests including cultures and C-diff Neg I do not believe it is an infectious cause. I did discuss the issues with Dr. Araujo ([facility] die maker electronic Oncologist) and he agrees with the plan for discharge and F/U tomorrow in the office. 01/16/18 18:29 Reevaluation #2: I did ask the patient about his low HR and he states he has been that way for a couple of weeks. When I listen to the heart I do hear an extra beat that does not seem to be transmitting to his wrist pulse. The patient and both state that has been a chronic issue and his bulk truck driver knows about it and is watching it. Due to that fact I do not feel we need to work up the issue at this time. 01/16/18 18:54 Medical Decision Making - Data Complexity MDM Data: Labs Ordered and/or Reviewed - Lab Data Result diagrams: 01/16/18 17:35 01/16/18 17:35 Disposition Disposition: Discharge Clinical Impression: Chronic diarrhea Disposition: Home, Self-Care Condition: (2) Stable Instructions: Chronic Diarrhea (ED) Additional Instructions: Please drink plenty of fluids and use Immodium if needed. Please see the [facility] Cancer people tomorrow as planned. Return to the ER for any worsening diarrhea, any pain, fever, or vomiting. Please take the potassium as directed. Prescriptions: Potassium Chloride [Klor-Con 10] 10 meq PO DAILY #5 tablet.er Forms: Patient Portal Access Time of Disposition: 18:45 Quality - Quality Measures Quality Measures: N/A - Blood Pressure Screening View Details: Yes Does Patient Have Any of the Following: Active Dx of HTN Blood Pressure Classification: Pre-Hypertensive BP Reading Systolic Measurement: 120 Diastolic Measurement: 68 Screening for High Blood Pressure: Patient Exclusion, Hx of HTN [G9744]
[2018-01-16 17:41] LABS: BASO % 0.2 % (0-6); EOS % 0.5 % (0-6); GRAN % 62.9 % (47-80); HEMATOCRIT 28.7 % (42.0-52.0); HEMOGLOBIN 9.3 gm/dl (14.0-18.0); LYMPH % 27.6 % (16-45); MEAN CELL VOLUME 94.4 fl (81-97); MEAN CORPUSCULAR HGB CONC 32.4 g/dl (32-36); MEAN PLATELET VOLUME 10.5 fl (7.4-10.4); MONO % 8.8 % (0-9); RED BLOOD COUNT 3.04 M/uL (4.40-5.70); WHITE BLOOD COUNT W/O DIFF 6.5 K/uL (4.2-12.2)
[2018-01-16 17:48] LABS: MEAN CORPUSCULAR HEMOGLOBIN 30.5 pg (27-33); PLATELET COUNT 80 K/uL (130-400); RED CELL DISTRIBUTION WIDTH 18.5 % (11.5-14.5)
[2018-01-16 17:52] LABS: BLOOD UREA NITROGEN 15 mg/dL (8-23); CREATININE 0.5 mg/dL (0.7-1.2); EST GLOMERULAR FILTRATION RATE > 60 mL/min; TOTAL PROTEIN 5.2 g/dL (6.6-8.7)
[2018-01-16 17:54] LABS: GLUCOSE,RANDOM 107 mg/dL (74-109)
[2018-01-16 17:57] LABS: ALBUMIN 3.4 g/dL (4.0-5.0); ALKALINE PHOSPHATASE 171 U/L (40-129); ALT/SGPT 21 U/L (<41); AST/SGOT 28 U/L (10.0-50.0); BILIRUBIN,DIRECT 0.3 mg/dL (0-0.3)
[2018-01-16] MEDS ORDERED: POTASSIUM CHLORIDE 20 MEQ TABLET PO ONE (18:07)
[2018-01-16 18:31] LABS: URINE APPEARANCE CLEAR; URINE BILIRUBIN NEGATIVE (NEGATIVE); URINE BLOOD NEGATIVE (NEGATIVE); URINE COLOR YELLOW; URINE GLUCOSE (UA) NEGATIVE (NEGATIVE); URINE KETONE NEGATIVE (NEGATIVE); URINE LEUKOCYTE ESTERASE NEGATIVE (NEGATIVE); URINE NITRITE NEGATIVE (NEGATIVE); URINE PROTEIN NEGATIVE (NEGATIVE); URINE UROBILINOGEN 0.2 E.U./dL (0.20 - 1.00)
[2018-01-16] MEDS ORDERED: HEPARIN SODIUM FLUSH 100 UNITS/ML SYR 5ML IVP ONE (18:56)
== END 2018-01-16 19:09 | disposition home or self-care (01) ==
LOC: ER 16:48
DX: K52.9 Noninfective gastroenteritis and colitis, unspecified (principal); C81.90 Hodgkin lymphoma, unspecified, unspecified site; I10 Essential (primary) hypertension; F17.210 Nicotine dependence, cigarettes, uncomplicated
CPT/HCPCS: 99284 ×2; 85025; 80076; 80048; 81003; J1642; J7030